=== PATIENT | female | born 1995 | race Caucasian/White ===

== ENCOUNTER 2017-11-19 16:17 | Emergency (ER) | payer MEDICAID, SELFPAY ==
[2017-11-19 16:18] VITALS: BP 117/62; PULSE 82; RESP 16; TEMP 36.8; O2SAT 96; BMI 21.7
[2017-11-19 16:56] LABS: Absolute Lymphocyte Count 1.25 X10^3/ul (0.83-4.51); Absolute Neutrophil Count 3.3 X10^3/uL (2.0-7.7); Basophil# 0.01 X10^3/uL; Basophil% 0.2 % (0-1); Eosinophil# 0.03 X10^3/uL; Eosinophils% 0.6 % (0-5); Hematocrit 36.9 % (37-47); Hemoglobin 12.8 g/dl (12.0-15.0); Lymphocyte # 1.25 X10^3/ul (4.0); Lymphocyte % 25.7 % (19-41); Mean Corp Hgb Conc 34.7 g/gl (32-36); Mean Corpuscular Hgb 33.9 pg (27.0-32.0); Mean Corpuscular Volume 97.6 fL (81-99); Mean Platelet Vol. 8.6 fl (6.2-12.0); Monocyte# 0.29 X10^3/uL; Neutrophil # 3.28 X10^3/uL (2.7-7.7); Neutrophil % 67.5 % (47-70); POSITIVE COUNT NO; POSITIVE DIFFERENTIAL NO; Platelet Count 306 K/mm3 (150-450); RBC Distribution Width SD 40.9 fl (35.1-43.9); Red Blood Count 3.78 M/mm3 (4.2-5.4); White Blood Count 4.9 K/mm3 (4.4-11.0)
[2017-11-19 16:57] LABS: POSITIVE MORPHOLOGY NO
[2017-11-19] MEDS: Mixture 30 ML Bottle 20 ML TOPICAL (17:49)
[2017-11-19] MEDS: Silver Nitrate (BKC) 8 EACH TOPICAL (17:49)
--- NOTE | 2017-11-19 17:59 | ED.VISSUMM ---
- ER Visit Summary Date of Service: 11/19/17 Chief Complaint: Epistaxis with hematemesis History of Present Illness: The patient is a 22 F who reports history of aplastic anemia diagnosed at the age of 19. She is presently approximately 10 weeks gestation. She is a AB 1 (spontaneous). She was sent to the ER by her warp hand because of epistaxis with hematemesis. Approximately 1 week ago she had a nosebleed. This morning she was awakened because of nosebleed. She had vomiting. There was some blood noted in the emesis. This most likely represented blood from her nosebleed. There is no history of trauma. She denies bruising easily. She denies hematuria, melena or maroon stool. She has no other complaints please read written note Physical Examination: Head is atraumatic normocephalic. Pupils are equal round reactive. Extraocular muscles are intact. TMs are pearly white with landmarks noted. Nares patent with no drainage. It is dried blood over Kiesselbach's plexus right and left posterior pharynx without erythema or exudate. Uvula is midline. There is no blood noted posteriorly. There is no dysphonia or dysphasia. Trachea is midline. There is no stridor with auscultation of the neck. His petechiae noted right and left side of the face. There is no conjunctival hemorrhage noted. Heart is regular without murmur, gallop or rub. S1 and S2 are normal. Lungs are clear to auscultation with good movement of air bilaterally. Abdomen is soft nontender. There are no bruises noted. Test Results: CBC was obtained and is normal. Emergency Department Course and Treatment: With history of aplastic anemia CBC was obtained initially since she has petechiae rule out thrombus cytopenia. Using Susanne solution the right and left naris was anesthetized. Cauterization of the right and left septum around the bleed was performed using silver nitrate sticks. Treatment Plan: Appropriate home-going instructions use of [place] nasal spray Disposition: Discharged home in stable condition Impression: 1. Bilateral acute anterior epistaxis 2. Hematemesis secondary to #1 3. First trimester 4. History of aplastic anemia This note was generated with 4meeeation software. It may contain incorrect words, spelling, and punctuation that were not noted in review of the chart prior to signing ED Disposition - Plan for ED Patient: Disposition: Home or Assisted Living Chief Complaint: Nosebleed Instructions: Nosebleed Referrals: Jessica Jay MD [Primary Care Provider] - Destinee Sevilla MD [STAFF PHYSICIAN] - Keep Evelina appointment
--- NOTE | 2017-11-19 18:05 | ED.DCSUM_ITS ---
- ER Visit Summary Date of Service: 11/19/17 Chief Complaint: Epistaxis with hematemesis History of Present Illness: The patient is a 22 F who reports history of aplastic anemia diagnosed at the age of 19. She is presently approximately 10 weeks gestation. She is a AB 1 (spontaneous). 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 Approximately 1 week ago she had a nosebleed. This morning she was awakened because of nosebleed. She had vomiting. There was some blood noted in the emesis. This most likely represented blood from her nosebleed. There is no history of trauma. She denies bruising easily. She denies hematuria, melena or maroon stool. She has no other complaints please read written note Physical Examination: Head is atraumatic normocephalic. Pupils are equal round reactive. Extraocular muscles are intact. TMs are pearly white with landmarks noted. Nares patent with no drainage. It is dried blood over Kiesselbach's plexus right and left posterior pharynx without erythema or exudate. Uvula is midline. There is no blood noted posteriorly. There is no dysphonia or dysphasia. Trachea is midline. There is no stridor with auscultation of the neck. His petechiae noted right and left side of the face. There is no conjunctival hemorrhage noted. Heart is regular without murmur, gallop or rub. S1 and S2 are normal. Lungs are clear to auscultation with good movement of air bilaterally. Abdomen is soft nontender. There are no bruises noted. Test Results: CBC was obtained and is normal. Emergency Department Course and Treatment: With history of aplastic anemia CBC was obtained initially since she has petechiae rule out thrombus cytopenia. Using Susanne solution the right and left naris was anesthetized. Cauterization of the right and left septum around the bleed was performed using silver nitrate sticks. Treatment Plan: Appropriate home-going instructions use of [place] nasal spray Disposition: Discharged home in stable condition Impression: 1. Bilateral acute anterior epistaxis 2. Hematemesis secondary to #1 3. First trimester 4. History of aplastic anemia This note was generated with Vungleation software. It may contain incorrect words, spelling, and punctuation that were not noted in review of the chart prior to signing ED Disposition - Plan for ED Patient: Disposition: Home or Assisted Living Chief Complaint: Nosebleed Instructions: Nosebleed Referrals: Jessica Jay MD [Primary Care Provider] - Destinee Sevilla MD [STAFF PHYSICIAN] - Keep Evelina appointment
== END 2017-11-19 18:11 | disposition home or self-care (01) ==
PROVIDERS: Emergency Provider Emergency Medicine; Family Provider Internal Medicine; PCP Internal Medicine
DX: O26.891 Other specified pregnancy related conditions, first trimester (principal); R04.0 Epistaxis; K92.0 Hematemesis; Z86.2 Personal history of diseases of the blood and blood-forming organs and certain disorders involving the immune mechanism; Z3A.10 10 weeks gestation of pregnancy
CPT/HCPCS: 30901; 85025; 99283; A4216

== ENCOUNTER → 2017-12-03 16:18 | Outpatient (CLI) | payer MEDICAID, SELFPAY | PROVIDERS: Family Provider Internal Medicine; PCP Internal Medicine; Visit Provider Otolaryngology | DX: J01.90 Acute sinusitis, unspecified (principal) | CPT/HCPCS: 87070; 87205 ==

== ENCOUNTER 2017-12-12 14:16 | Emergency (ER) | payer MEDICAID, SELFPAY ==
[2017-12-12 14:17] VITALS: BP 150/81; PULSE 86; RESP 16; TEMP 36.5; BMI 20.3
[2017-12-12] MEDS: Morphine 4 MG/ML Syringe IV (15:12)
[2017-12-12] MEDS: DiphenhydrAMINE 50 MG/ML Syringe 25 MG IV (15:12)
[2017-12-12] MEDS: 0.9% Normal Saline 1,000 ML 999 ML IV (15:12)
[2017-12-12] MEDS: Metoclopramide 10 MG/2 ML Vial IV (15:12)
--- NOTE | 2017-12-12 16:05 | ED.VISSUMM ---
- ER Visit Summary Date of Service: 12/12/17 Chief Complaint: Headache History of Present Illness: The patient is a [address] Destinee Sevilla and Dr. Jay. She is a at 15 weeks . She reports she has a headache that began 3 days ago. Is gradually gotten worse. It is a throbbing pain to her temples and posterior to her eyes. Senna 10 at worst a 10 currently. It is worsened by light. She has taken Tylenol without relief. She has been nausea and vomited twice. No blood or emesis. No recent trauma. No fever or chills. No vaginal bleeding. Physical Examination: Vitals: Stable. Afebrile. General: Well-nourished and well-developed. Head: Normocephalic atraumatic. Neck: Supple, no lymphadenopathy. No JVD. Nontender. Cardiovascular: Regular rate and rhythm. No murmurs. Respiratory: No respiratory distress. Clear to auscultation bilaterally. Abdominal: Soft, nontender, nondistended, normal bowel sounds. No guarding, rebound, or peritoneal signs. Gravid uterus. Back: Nontender. Extremities: Nontender, no edema. Skin: Normal color, no rash. Neurologic: Alert and oriented ?3. Cranial nerves II through XII are intact. Normal strength and sensation. Psych: Normal affect. Emergency Department Course and Treatment: The heart tones are 152. She was given morphine, Reglan, and Benadryl IV. She reports that she has had significant relief. Treatment Plan: Patient will be discharged with Reglan to use as needed for nausea and headache. Push fluids. Use Tylenol as well. Follow-up Dr. Sevilla and/or Dr. Jay in 1-2 days if not improving. Return to the emergency department for any worsening symptoms. Disposition: To home in improved and stable condition. Impression:. Cephalgia. 2. Second trimester . This note was generated with CorMatrix dictation software. It may contain incorrect words, spelling, and punctuation that were not noted in review of the chart prior to signing ED Disposition - Plan for ED Patient: Chief Complaint: Headache Instructions: ED Cephalgia Unspecified Prescriptions: Metoclopramide [Reglan] 10 mg PO 4X/DAY PRN #20 tablet PRN Reason: Headache Referrals: Jessica Jay MD [Primary Care Provider] - 1-2 Days if not improving Destinee Sevilla MD [STAFF PHYSICIAN] - 1-2 Days if not improving
[2017-12-12 16:13] VITALS: BP 102/30; PULSE 82; RESP 16; O2SAT 100
--- NOTE | 2017-12-12 16:15 | ED.RN ---
REVIEWED D/C INSTRUCTIONS, FOLLOW UP CARE, PRESCRIPTION, AND S/S THAT WOULD WARRANT A RETURN TO THE ED WITH PT. PT VERBALIZED AN UNDERSTANDING AND DENIES FURTHER QUESTIONS FOR THIS RN. PT SKIN P/W/D, RESP EVEN AND UNLABORED, PT A&O X 3, NO DISTRESS NOTED. PT AMBULATED OUT OF ED, GAIT STEADY.
== END 2017-12-12 16:16 | disposition home or self-care (01) ==
PROVIDERS: Emergency Provider Emergency Medicine; Family Provider Internal Medicine; PCP Internal Medicine
DX: O26.892 Other specified pregnancy related conditions, second trimester (principal); R51 Headache; O21.9 Vomiting of pregnancy, unspecified; O99.112 Other diseases of the blood and blood-forming organs and certain disorders involving the immune mechanism complicating pregnancy, second trimester; Z3A.15 15 weeks gestation of pregnancy
CPT/HCPCS: 96361; 96374; 96375; 99283; J7030

== ENCOUNTER 2018-02-02 08:50 | Emergency (ER) | payer MEDICAID, SELFPAY ==
[2018-02-02 08:51] VITALS: BP 115/65; PULSE 81; RESP 12; TEMP 36.2; BMI 21.1
--- NOTE | 2018-02-02 09:03 | ED.VISSUMM ---
- ER Visit Summary Date of Service: 02/02/18 Chief Complaint: Vomited blood History of Present Illness: The patient is a 22 F who states she vomited blood once this morning. She went to work and had a sweet tea and after that she vomited once. It was light red in color. She currently has no abdominal pain or nausea. She is 22 weeks gestation. She has had no abdominal pain or vaginal bleeding or vaginal discharge. She does have a history of aplastic anemia. Physical Examination: Vital signs reviewed. HEENT exam unremarkable. Heart is regular rate and rhythm without murmurs. Lungs are clear to auscultation. Abdomen is soft and nontender. Abdomen is gravid appropriate to dates. Extremities reveal no edema. Skin exam normal. Neurologic exam normal. Test Results: Hemoglobin 10.4 Emergency Department Course and Treatment: Patient has no symptoms at this time. heart tones are 134. Hemoglobin is 10.4. Patient will monitor symptoms and will follow up with her OB Treatment Plan: [] Disposition: Discharge Impression: Hematemesis-resolved, history of aplastic anemia This note was generated with IdealSeat dictation software. It may contain incorrect words, spelling, and punctuation that were not noted in review of the chart prior to signing ED Disposition - Plan for ED Patient: Chief Complaint: GI Bleed Referrals: Jessica Jay MD [Primary Care Provider] -
[2018-02-02 09:38] LABS: Absolute Lymphocyte Count 1.18 X10^3/ul (0.83-4.51); Absolute Neutrophil Count 2.6 X10^3/uL (2.0-7.7); Basophil# 0.01 X10^3/uL; Basophil% 0.3 % (0-1); Eosinophil# 0.02 X10^3/uL; Eosinophils% 0.5 % (0-5); Hematocrit 30.7 % (37-47); Hemoglobin 10.4 g/dl (12.0-15.0); Lymphocyte # 1.18 X10^3/ul (4.0); Lymphocyte % 29.8 % (19-41); Mean Corp Hgb Conc 33.9 g/gl (32-36); Mean Corpuscular Hgb 34.6 pg (27.0-32.0); Mean Platelet Vol. 8.1 fl (6.2-12.0); Monocyte# 0.17 X10^3/uL; Monocyte% 4.3 % (0-10); Neutrophil # 2.58 X10^3/uL (2.7-7.7); Neutrophil % 65.1 % (47-70); Platelet Count 197 K/mm3 (150-450); RBC Distribution Width CV 13.9 % (11.6-14.6); RBC Distribution Width SD 52.1 fl (35.1-43.9); Red Blood Count 3.01 M/mm3 (4.2-5.4)
[2018-02-02 09:39] LABS: POSITIVE COUNT NO; POSITIVE DIFFERENTIAL NO; POSITIVE MORPHOLOGY NO
--- NOTE | 2018-02-02 09:44 | ED.DEP ---
ED Disposition - Plan for ED Patient: Disposition: Home or Assisted Living Chief Complaint: GI Bleed Instructions: ED Bleed UGI Stable Referrals: Jessica Jay MD [Primary Care Provider] -
[2018-02-02 10:19] VITALS: BP 102/63; PULSE 67; RESP 16; O2SAT 100
== END 2018-02-02 10:25 | disposition home or self-care (01) ==
PROVIDERS: Emergency Provider Emergency Medicine; Family Provider Internal Medicine; PCP Internal Medicine
DX: O26.892 Other specified pregnancy related conditions, second trimester (principal); K92.0 Hematemesis; Z86.2 Personal history of diseases of the blood and blood-forming organs and certain disorders involving the immune mechanism; Z3A.22 22 weeks gestation of pregnancy
CPT/HCPCS: 85025; 99282

== ENCOUNTER 2018-02-06 18:43 | Emergency (ER) | payer MEDICAID, SELFPAY ==
[2018-02-06 18:44] VITALS: BP 94/53; PULSE 83; RESP 24; TEMP 36.6; O2SAT 98; BMI 21.7
--- NOTE | 2018-02-06 19:44 | ED.VISSUMM ---
- ER Visit Summary Date of Service: 02/06/18 Chief Complaint: Rash on face History of Present Illness: The patient is a 22 F who states that this morning she vomited. That occurred around 0800 hrs. Patient states that around 1300 hrs. Darlin informed that she has some red spots on her face. Is gotten worse. His has a history of aplastic anemia had her counts checked on Saturday and was told that they were fine. She has had some bleeding of her gums. Physical Examination: Febrile vital signs are stable. From the neck up the patient has some petechiae on the skin right greater than left. There is also some petechiae noted on the face and around the periorbital region. Test Results: CBC was obtained. Hemoglobin 10.3 was 10.4 on Saturday. Platelet count of 236 it was 197 on Saturday. Emergency Department Course and Treatment: Patient was given reassurance she will be discharged home return if worsening or concerns. Impression: 1. Facial and neck petechiae 2. Aplastic anemia This note was generated with [employer] dictation software. It may contain incorrect words, spelling, and punctuation that were not noted in review of the chart prior to signing ED Disposition - Plan for ED Patient: Disposition: Home or Assisted Living Chief Complaint: Rash Instructions: ED Petechiae Ch Referrals: Jessica Jay MD [Primary Care Provider] - As Needed
[2018-02-06 20:00] LABS: Absolute Lymphocyte Count 2.07 X10^3/ul (0.83-4.51); Absolute Neutrophil Count 3.3 X10^3/uL (2.0-7.7); Basophil# 0.01 X10^3/uL; Basophil% 0.2 % (0-1); Eosinophil# 0.04 X10^3/uL; Eosinophils% 0.7 % (0-5); Hematocrit 29.9 % (37-47); Hemoglobin 10.3 g/dl (12.0-15.0); Lymphocyte # 2.07 X10^3/ul (4.0); Lymphocyte % 35.9 % (19-41); Mean Corp Hgb Conc 34.4 g/gl (32-36); Mean Corpuscular Hgb 34.7 pg (27.0-32.0); Mean Corpuscular Volume 100.7 fL (81-99); Mean Platelet Vol. 8.3 fl (6.2-12.0); Monocyte# 0.32 X10^3/uL; Monocyte% 5.6 % (0-10); Neutrophil # 3.32 X10^3/uL (2.7-7.7); Neutrophil % 57.6 % (47-70); Platelet Count 236 K/mm3 (150-450); RBC Distribution Width CV 13.4 % (11.6-14.6); RBC Distribution Width SD 49.2 fl (35.1-43.9); Red Blood Count 2.97 M/mm3 (4.2-5.4); White Blood Count 5.8 K/mm3 (4.4-11.0)
[2018-02-06 20:01] LABS: POSITIVE COUNT NO; POSITIVE DIFFERENTIAL NO; POSITIVE MORPHOLOGY NO
== END 2018-02-06 20:12 | disposition home or self-care (01) ==
PROVIDERS: Emergency Provider Emergency Medicine; Family Provider Internal Medicine; PCP Internal Medicine
DX: R23.3 Spontaneous ecchymoses (principal); D61.9 Aplastic anemia, unspecified; R11.10 Vomiting, unspecified
CPT/HCPCS: 36415; 85025; 99282

== ENCOUNTER 2018-03-05 00:26 | Emergency (ER) | payer MEDICAID, SELFPAY ==
[2018-03-05 00:27] VITALS: BP 109/66; PULSE 86; RESP 17; TEMP 36.6; O2SAT 96; BMI 21.9
--- NOTE | 2018-03-05 00:42 | ED.VISSUMM ---
- ER Visit Summary Date of Service: 03/05/18 Chief Complaint: [Rash] History of Present Illness: The patient is a 22 F [started with a rash 2 days ago. Patient states it is pruritic. Patient recently used a new soap and is not sure if that was the cause of it. Patient also thinks it is possible she may have been exposed to poison prem or poison oak. Patient denies any new medications. Patient is 26 weeks . She has not had any recent illness. She denies any lip or tongue swelling or difficulty breathing.] Physical Examination: [HEENT-PERRLA, EOMI. Cranial nerves II through XII grossly intact. TMs clear. Mucous membranes moist. No adenopathy. Cardiovascular-regular rate and rhythm without murmur or ectopy Lungs-clear to auscultation, chest wall stable without crepitus or subcu emphysema Abdomen-normoactive bowel sounds, soft, nontender, no rebound or rigidity, no peritoneal signs. Skin exam-patient has urticaria involving the face, upper extremities, lower extremities and back. She has a red raised rash that is pruritic and consistent with urticaria Extremities-intact ?4, normal range of motion, normal pulses, atraumatic] Test Results: [None indicated Emergency Department Course and Treatment: [Patient given Solu-Medrol 125 mg IV and Benadryl 25 mill grams IV] Treatment Plan: [Patient will be treated with prednisone and advised use Benadryl as needed for itching] Disposition: [Discharged home in stable condition] Impression: [Urticaria-etiology uncertain] This note was generated with bluebottlebiz dictation software. It may contain incorrect words, spelling, and punctuation that were not noted in review of the chart prior to signing ED Disposition - Plan for ED Patient: Chief Complaint: Allergic Reaction Referrals: Jessica Jay MD [Primary Care Provider] -
--- NOTE | 2018-03-05 00:43 | ED.DEP ---
ED Disposition - Plan for ED Patient: Chief Complaint: Allergic Reaction Instructions: ED Urticaria Prescriptions: Prednisone [Deltasone] 20 mg PO BID #10 tab Referrals: Jessica Jay MD [Primary Care Provider] - 5-7 Days
[2018-03-05] MEDS: DiphenhydrAMINE 50 MG/ML Syringe 25 MG IV (00:49)
[2018-03-05] MEDS: MethylPREDNISolone 125 MG/2 ML Vial IV (00:49)
[2018-03-05 00:59] VITALS: BP 114/70; PULSE 69; RESP 18; O2SAT 98
== END 2018-03-05 00:59 | disposition home or self-care (01) ==
LOC: ED 00:54
PROVIDERS: Emergency Provider Emergency Medicine; Family Provider Internal Medicine; PCP Internal Medicine
DX: O26.892 Other specified pregnancy related conditions, second trimester (principal); L50.9 Urticaria, unspecified; Z86.2 Personal history of diseases of the blood and blood-forming organs and certain disorders involving the immune mechanism; Z3A.26 26 weeks gestation of pregnancy
CPT/HCPCS: 96374; 96375; 99284

== ENCOUNTER 2018-03-21 15:28 | Emergency (ER) | payer MEDICAID, SELFPAY ==
[2018-03-21 15:29] VITALS: BP 116/71; PULSE 86; RESP 18; TEMP 37; O2SAT 98; BMI 21.7
--- NOTE | 2018-03-21 15:49 | ED.VISSUMM ---
- ER Visit Summary Date of Service: 03/21/18 Chief Complaint: Swelling to chin History of Present Illness: The patient is a [address] Sevilla and Dr. Jay. She is a at 28 weeks of . She reports she had normal movement and no vaginal bleeding. She reports that she feels a swollen area under her chin and this began yesterday. States that it feels bruised. She has pain 6 out of 10 at worst and 5 out of 10 currently. Is worsened by swallowing. She is not taking anything for pain. Denies any dental pain or sore throat. No fever or chills. She does report that it is making her feel short of breath. Physical Examination: Vitals: Stable. Afebrile. General: Well-nourished and well-developed. Head: Normocephalic atraumatic. Neck: Supple, solitary approximately 1 cm swollen lymph node in the right submental region. There is no erythema. No JVD. Nontender. No pain with palpation of her teeth. No pharyngeal erythema or tonsillar exudate. Cardiovascular: Regular rate and rhythm. No murmurs. Respiratory: No respiratory distress. Clear to auscultation bilaterally. Abdominal: Soft, nontender, nondistended, normal bowel sounds. No guarding, rebound, or peritoneal signs. Gravid uterus. Back: Nontender. Extremities: Nontender, no edema. Skin: Normal color, no rash. Neurologic: Alert and oriented ?3. Cranial nerves II through XII are intact. Normal strength and sensation. Psych: Normal affect. Emergency Department Course and Treatment: Patient was treated with Tylenol and amoxicillin. Treatment Plan: Had a prolonged discussion the patient at this time I do not have an explanation for this swollen lymph node. She will be discharged on amoxicillin and instructed to follow-up with Dr. Manuel in 1 week if not improving. I did discuss the possibility that this could be something more serious like lymphoma if it is not improving. Follow-up with Dr. Sevilla as previously directed. Disposition: To home in improved and stable condition. Impression: 1. Submental lymphadenopathy. 2. Third trimester . This note was generated with OneMedNetation software. It may contain incorrect words, spelling, and punctuation that were not noted in review of the chart prior to signing ED Disposition - Plan for ED Patient: Chief Complaint: Other, Pain/Inj Instructions: ED Cervical Adenitis Abx Tx Prescriptions: Amoxicillin 500 mg PO TID #30 tablet Referrals: Tay Manuel MD [STAFF PHYSICIAN] - 1 Week if not improving
[2018-03-21] MEDS: AMOXICILLIN 500 MG CAPSULE PO (16:03)
[2018-03-21] MEDS: Acetaminophen 325 MG Tablet 1000 MG PO (16:04)
[2018-03-21 16:08] VITALS: PULSE 81; RESP 14; O2SAT 98
== END 2018-03-21 16:09 | disposition home or self-care (01) ==
LOC: ED 15:50
PROVIDERS: Emergency Provider Emergency Medicine; Family Provider Internal Medicine; PCP Internal Medicine
DX: O26.893 Other specified pregnancy related conditions, third trimester (principal); R59.0 Localized enlarged lymph nodes; Z3A.28 28 weeks gestation of pregnancy
CPT/HCPCS: 99283

== ENCOUNTER 2018-03-28 22:11 | Emergency (ER) | payer MEDICAID, SELFPAY ==
[2018-03-28 22:11] VITALS: BP 131/81; PULSE 99; RESP 14; TEMP 37.1; O2SAT 98; BMI 22.1
--- NOTE | 2018-03-28 22:30 | ED.VISSUMM ---
- ER Visit Summary Date of Service: 03/28/18 Chief Complaint: Headache History of Present Illness: The patient is a 22 F at 30 weeks gestation presents with a gradual onset of headache and photophobia. No vision changes. She felt lightheaded while in a hot shower, however this has resolved. No fever or chills. Patient has no abdominal pain, vaginal bleeding. She has no edema. She has not had problems this . Physical Examination: Not appear in acute distress. Moist mucous membranes, no obvious facial deformity No C-spine tenderness supple neck. Regular rate and rhythm without any obvious murmurs Clear lungs bilaterally speaking in full sentences without any obvious respiratory distress Abdomen soft and nontender no guarding or rebound Moves all extremities without any difficulty or pain. No edema Skin does not show any obvious rashes or lesions, no trauma. Alert oriented ?3 with no gross focal deficit. Normal gait, cerebellar. Emergency Department Course and Treatment: Patient received IV fluids, antiemetics. Workup is unremarkable her initial systolic was slightly high but her PIH labs were negative. She is to follow-up with her manager management, I told her to check her blood pressure at the grocery store pharmacy every day, if her symptoms worsen or she gets headache or swelling she needs to return right away. Otherwise she will be discharged in stable condition, she had a gradual onset of headache with no neurological symptoms which improved, no reason for intracranial imaging. Disposition: Discharge stable condition Impression: Headache This note was generated with [employer] dictation software. It may contain incorrect words, spelling, and punctuation that were not noted in review of the chart prior to signing ED Disposition - Plan for ED Patient: Disposition: Home or Assisted Living Chief Complaint: Headache Instructions: ED Cephalgia Unspecified Referrals: Destinee Sevilla MD [STAFF PHYSICIAN] - 3-5 Days
[2018-03-28] MEDS: 0.9% Normal Saline 1,000 ML 1000 ML IV (22:39)
[2018-03-28] MEDS: DiphenhydrAMINE 50 MG/ML Syringe 25 MG IV (22:39)
[2018-03-28 22:47] LABS: Absolute Lymphocyte Count 2.29 X10^3/ul (0.83-4.51); Absolute Neutrophil Count 3.8 X10^3/uL (2.0-7.7); Basophil# 0.01 X10^3/uL; Basophil% 0.1 % (0-1); Eosinophil# 0.08 X10^3/uL; Eosinophils% 1.2 % (0-5); Hematocrit 31.9 % (37-47); Lymphocyte # 2.29 X10^3/ul (4.0); Lymphocyte % 34.3 % (19-41); Mean Corp Hgb Conc 34.5 g/gl (32-36); Mean Corpuscular Hgb 34.5 pg (27.0-32.0); Mean Platelet Vol. 8.6 fl (6.2-12.0); Monocyte# 0.46 X10^3/uL; Monocyte% 6.9 % (0-10); Neutrophil # 3.84 X10^3/uL (2.7-7.7); Neutrophil % 57.5 % (47-70); Platelet Count 196 K/mm3 (150-450); RBC Distribution Width CV 12.6 % (11.6-14.6); RBC Distribution Width SD 45.9 fl (35.1-43.9); Red Blood Count 3.19 M/mm3 (4.2-5.4); White Blood Count 6.7 K/mm3 (4.4-11.0)
[2018-03-28 22:48] LABS: POSITIVE COUNT NO; POSITIVE DIFFERENTIAL NO; POSITIVE MORPHOLOGY NO
[2018-03-28 23:08] LABS: BUN 5 mg/dL (7-18); Creatinine, Serum 0.64 mg/dL (0.55-1.02); Estimated Creatinine Clearance 115.02 ml/min; Glucose 87 mg/dL (74-106)
[2018-03-28 23:09] LABS: AST(SGOT) 19 U/L (15-37); Alanine Aminotransfer ALT/SGPT 15 U/L (13-56); Albumin, Serum 2.7 g/dL (3.2-5.0); Alkaline Phosphatase 89 U/L (45-117); Anion Gap 10 (5-15); BUN/Creat Ratio 7.8 RATIO (10-20); Bilirubin, Direct 0.06 mg/dL (0.00-0.30); Calcium,Total 8.2 mg/dL (8.5-10.1); Chloride 106 mmol/L (98-107); EST Glomerular Filtration Rate 124 mL/min (>60); Est Glom Filt Rate - Afr Amer 150 mL/min (>60); Globulin 4.4 g/dL (2.2-4.2); Potassium 3.3 mmol/L (3.5-5.1); Protein, Total 7.1 g/dL (6.4-8.2); Sodium Level 140 mmol/L (136-145); Uric Acid 3.5 mg/dL (2.6-6.0)
== END 2018-03-28 23:52 | disposition home or self-care (01) ==
PROVIDERS: Emergency Provider Emergency Medicine; Family Provider Internal Medicine; PCP Internal Medicine
DX: O26.893 Other specified pregnancy related conditions, third trimester (principal); R51 Headache; R42 Dizziness and giddiness; R11.0 Nausea; Z86.2 Personal history of diseases of the blood and blood-forming organs and certain disorders involving the immune mechanism; Z3A.30 30 weeks gestation of pregnancy
CPT/HCPCS: 80048; 80076; 84550; 85025; 96361; 96374; 99283; J7030; A4216

== ENCOUNTER 2018-04-19 09:40 | Outpatient (CLI) | payer MEDICAID, SELFPAY ==
[2018-04-19 10:24] VITALS: BMI 22.4
[2018-04-19 10:26] LABS: Mucous, Urine 0 SEEN /hpf (<or=2+); Red Blood Cells-Urine 0 SEEN /hpf (0-5)
[2018-04-19 10:29] LABS: Color, Urine Yellow (Yellow); Glucose, Dipstick Normal (Normal); Ketone-Dipstick 15 mg/dl (Negative); Leukocyte Esterase-Dipstick 100 /ul (Negative); Nitrite-Dipstick Negative (Negative); Occult Blood-Urine Negative /ul (Negative); Protein-Dipstick Negative (Negative); Specific Gravity, Urine 1.015 (1.002-1.030); Urine Bilirubin Dipstick Negative (Negative); Urine Clarity Clear (Clear); Urine Urobilinogen Normal (Normal)
[2018-04-19 10:44] LABS: Bacteria 1+ /hpf (None Seen); Squamous Epithelial Cells - UA 0-5 SEEN /hpf (5-10); White Blood Cells 0-5 SEEN /hpf (0-5)
[2018-04-19] MEDS: Lactated Ringers 1,000 ML 999 ML IV (11:15)
--- NOTE | 2018-04-20 00:48 | OB.TRI.NOTE ---
- Problem List (1) Status: Acute History of Present Illness Date of Service: 04/19/18 Was patient seen by the physician?: No Reason For Visit: R/O LABOR Date of Service: 04/19/18 Final JARON: 06/09/18 Gestational age: 32 Weeks and 6 Days History of Present Illness: Presented to L&D with complaint of contractions and back pain. Denied any leakage of fluid or vaginal bleeding. [place] in last 24 hours. Allergies No Known Allergies Allergy (Verified 04/19/18 10:24) NST - FHR Rate Baby A Baseline: 140 Variability:: Moderate Accelerations:: 15 x 15 Decelerations:: None NST Reactive:: Yes FHR Category:: Category I Uterine Activity:: every 2-3 minutes, lasting 30-50 seconds. Contractions decreased to every 5 minutes Impression/Plan A: False Labor Reactive NST P: 1) UA done, negative 2) 1 liter LR bolus 3) Contractions decreased, patient no longer uncomfortable or feeling contractions, no cervical change per nursing staff. Ok to D/C home. PTL precautions reviewed by nursing.
== END 2018-04-19 12:45 | disposition home or self-care (01) ==
LOC: WPOUT 10:11 → WP 10:12
PROVIDERS: Family Provider Internal Medicine; PCP Internal Medicine; Visit Provider Advanced Practice Midwife
DX: O47.03 False labor before 37 completed weeks of gestation, third trimester (principal); Z3A.32 32 weeks gestation of pregnancy
CPT/HCPCS: 96360; 59025; 59050; 81001; 99218; J7120; G0378

== ENCOUNTER 2018-05-11 02:25 | Outpatient (CLI) | payer MEDICAID, SELFPAY ==
[2018-05-11 03:06] VITALS: BMI 23.4
[2018-05-11 03:24] LABS: Mucous, Urine 0 SEEN /hpf (<or=2+); Red Blood Cells-Urine 0 SEEN /hpf (0-5)
[2018-05-11 03:34] LABS: Color, Urine Yellow (Yellow); Glucose, Dipstick Normal (Normal); Ketone-Dipstick Negative (Negative); Leukocyte Esterase-Dipstick 25 /ul (Negative); Nitrite-Dipstick Negative (Negative); Occult Blood-Urine Negative /ul (Negative); Protein-Dipstick Negative (Negative); Urine Bilirubin Dipstick Negative (Negative); Urine Clarity Sl. Cloudy (Clear); Urine Urobilinogen Normal (Normal)
[2018-05-11 03:40] LABS: Amorphous Sediment 1+; Bacteria RARE /hpf (None Seen); Squamous Epithelial Cells - UA 0-5 SEEN /hpf (5-10)
[2018-05-11 03:41] LABS: White Blood Cells 0-5 SEEN /hpf (0-5)
[2018-05-11 06:17] LABS: Group B Strep DNA By PCR Negative (Negative); Internal Control PASS; Probe Check PASS; Specimen Processing Control PASS
--- NOTE | 2018-05-11 20:23 | OB.TRI.NOTE ---
History of Present Illness Date of Service: 05/11/18 Was patient seen by the physician?: No Reason For Visit: R/O LABOR Date of Service: 05/11/18 Final JARON: 06/09/18 Gestational age: 35 Weeks and 6 Days Allergies No Known Allergies Allergy (Verified 05/11/18 03:10) NST - FHR Rate Baby A Baseline: 130 Variability:: Moderate Accelerations:: 15 x 15 Decelerations:: None NST Reactive:: Yes FHR Category:: Category I Uterine Activity:: irregular Impression/Plan 22yo @ 35.6 wks- FALSE LABOR NST reactive category 1- no cervical change made. dc home
== END 2018-05-11 04:30 | disposition home or self-care (01) ==
LOC: WPOUT 02:57 → WP 02:57
PROVIDERS: Family Provider Internal Medicine; PCP Internal Medicine; Visit Provider Obstetrics & Gynecology
DX: O47.03 False labor before 37 completed weeks of gestation, third trimester (principal); Z3A.35 35 weeks gestation of pregnancy
CPT/HCPCS: 59025; 59050; 81001; 87081; 87653; 99218; G0378

== ENCOUNTER 2018-05-17 01:40 | Outpatient (CLI) | payer MEDICAID, SELFPAY ==
[2018-05-17 02:20] VITALS: BMI 23.4
[2018-05-17] MEDS: Metoclopramide 10 MG Tablet 5 MG PO (02:47)
[2018-05-17] MEDS: Acetaminophen/Butalbital/Caffe 1 Tablet PO (02:47)
[2018-05-17] MEDS: Betamethasone/Betamethasone 30 MG/5 ML Vial 12 MG IM (03:00)
[2018-05-17] MEDS: Lactated Ringers 1,000 ML 999 ML IV (03:58)
--- NOTE | 2018-05-17 05:42 | OB.TRI.HP_ITS ---
- Problem List (1) Headache in Status: Acute (2) Cramping affecting , antepartum Status: Acute History of Present Illness Date of Service: 05/17/18 Was patient seen by the physician?: Yes Reason For Visit: R/O LABOR Date of Service: 05/17/18 Final JARON: 06/09/18 Gestational age: 36 Weeks and 5 Days History of Present Illness: Patient presents to triage due to SPIVEY. She took Tylenol and Benadryl last night without relief of her SPIVEY. It is a frontal SPIVEY, associated with worsening with light. She also has associated nausea and 1 episode of emesis. She was able to drink water after the episode of emesis. Denies hx of chronic SPIVEY's or every having migraine before in the past. No vision changes. No RUQ pain. She reports she has been feeling pelvic pressure and menstrual cramping. No vb, lof. Good FM. Allergies No Known Allergies Allergy (Verified 05/11/18 03:10) Review of Systems Constitutional: Denies: Chills, Fever, Malaise Eyes: Denies: Blurred vision, Double vision HEENT: Reports: Head Aches Gastrointestinal: Reports: Nausea, Vomiting. Denies: Abdominal Pain, Constipation, Diarrhea, Dyspepsia Genitourinary: Denies: Dysuria Gynecological: Denies: Vaginal bleeding, Vaginal discharge Neurological: Reports: Headaches. Denies: Blurred vision, Double vision Psychiatric: Reports: Anxiety Physical Exam Vitals: BP normotensive General: Alert, Oriented x3, No apparent distress HEENT: Atraumatic Lungs: - - No increased resp effort Abdomen: Soft, Non Tender, Gravid Extremities:: No edema Neurological: Neuro grossly intact Presentation: Cephalic Cervix Dilation (cm): 3.5 - per RN exam NST - FHR Rate Baby A NST Reactive:: Yes FHR Category:: Category I Uterine Activity:: ctx's q 2-4 min Impression/Plan 22 y/o at 36 wks gestation presenting to triage for SPIVEY. - SPIVEY: BP's normal. Resolved with Fioricet and Reglan. Likely a migraine given description by pt. No other pre-e symptoms - Cramping and pressure: [place] showing ctx's q 2-4 min. Pt not uncomfortable or having pain with the ctx's. She reports menstrual-like cramping only. Pt comfortable appearing on exam as well. Cvx 3 > 3.5 > 3.5 cm per RN. BMZ x 1 given, will get second dose in 24 hrs. IVF bolus given. Pt states she lives 5-10 min away from the hospital. Gave her strict PTL return precautions. Otherwise she is to return to triage for her 2nd BMZ injection. GBS negative
== END 2018-05-17 05:50 | disposition home or self-care (01) ==
LOC: WPOUT 01:53 → WP 01:54
PROVIDERS: Family Provider Internal Medicine; PCP Internal Medicine; Visit Provider Obstetrics & Gynecology
DX: O26.893 Other specified pregnancy related conditions, third trimester (principal); R51 Headache; O21.2 Late vomiting of pregnancy; Z3A.36 36 weeks gestation of pregnancy
CPT/HCPCS: 96360; 59025; 59050; 96372; 99218; J7120; G0378

== ENCOUNTER 2018-05-17 16:15 | Outpatient (CLI) | payer MEDICAID, SELFPAY ==
[2018-05-17 18:06] VITALS: BMI 23.6
--- NOTE | 2018-05-17 19:12 | OB.TRI.NOTE ---
- Problem List (1) contractions Status: Acute History of Present Illness Date of Service: 05/17/18 Was patient seen by the physician?: Yes Reason For Visit: RULE OUT LABOR Date of Service: 05/17/18 Gestational age: 36 wks History of Present Illness: Patient reports her ctx's continued after leaving triage this morning, and she felt they were more painful. Still feeling them regularly. No vb, lof. Good FM. Allergies No Known Allergies Allergy (Verified 05/17/18 18:08) - Pertinent Past Medical History Medical History: Past Medical History (Last Updated 05/17/18 @ 05:41 by Melissa Soriano DO) Anxiety Aplastic anemia History of miscarriage Vitamin B12 deficiency Review of Systems Gynecological: Reports: - - +Ctx's. No vb, lof. Good FM. Physical Exam General: Alert, Oriented x3 HEENT: Atraumatic Lungs: - - No increased resp effort Abdomen: Soft, Non Tender, Gravid Neurological: Neuro grossly intact Presentation: Cephalic Cervix Dilation (cm): 3.5 - on 2 exams per RN NST - FHR Rate Baby A FHR Category:: Category I Uterine Activity:: Ctx q 2-5 min Impression/Plan 22 y/o at 36 wks gestation presenting with contractions. - Cvx 3.5 cm, and unchanged on recheck - Pt appears comfortable - Will give 1 dose of Procardia for symptomatic relief, and send an rx if pt desires - Ok for d/c home as she does not appear to be in PTL at this time - To return in the AM for 2nd dose of BMZ - Strict return precautions given
[2018-05-17] MEDS: NIFEdipine 10 MG Capsule PO (19:28)
[2018-05-17 19:30] VITALS: BP 126/66; PULSE 81; RESP 16; TEMP 36.7
== END 2018-05-17 20:35 | disposition home or self-care (01) ==
LOC: WPOUT 16:42 → WP 16:43
PROVIDERS: Family Provider Internal Medicine; PCP Internal Medicine; Visit Provider Obstetrics & Gynecology
DX: O26.893 Other specified pregnancy related conditions, third trimester (principal); R51 Headache; O21.2 Late vomiting of pregnancy; O99.343 Other mental disorders complicating pregnancy, third trimester; F41.9 Anxiety disorder, unspecified; Z3A.36 36 weeks gestation of pregnancy
CPT/HCPCS: 96360; 59025; 59050; 96372; 99218; J7120; G0378

== ENCOUNTER 2018-05-18 06:50 | Outpatient (CLI) | payer MEDICAID, SELFPAY ==
[2018-05-18 06:56] VITALS: BMI 23.6
[2018-05-18] MEDS: Betamethasone/Betamethasone 30 MG/5 ML Vial 12 MG IM (07:25)
[2018-05-18 07:36] VITALS: BP 115/58; PULSE 76; RESP 20; TEMP 36.1
--- NOTE | 2018-05-24 20:18 | OB.TRI.PN ---
Progress Notes Progress Note: Patient presented for 2nd dose of BMZ.
== END 2018-05-18 07:35 | disposition home or self-care (01) ==
LOC: WPOUT 06:53 → WP 06:53
PROVIDERS: Family Provider Internal Medicine; PCP Internal Medicine; Visit Provider Obstetrics & Gynecology
DX: O26.893 Other specified pregnancy related conditions, third trimester (principal); R51 Headache; O21.2 Late vomiting of pregnancy; Z3A.36 36 weeks gestation of pregnancy
CPT/HCPCS: 96372; 99218; G0378; J0702

== ENCOUNTER 2018-05-19 20:55 | Outpatient (CLI) | payer MEDICAID, SELFPAY ==
[2018-05-19 21:27] VITALS: BMI 24.6
[2018-05-19 21:50] LABS: Bacteria 0 SEEN /hpf (None Seen); Mucous, Urine 0 SEEN /hpf (<or=2+); Red Blood Cells-Urine 0 SEEN /hpf (0-5)
[2018-05-19 22:01] LABS: Color, Urine Straw (Yellow); Glucose, Dipstick Normal (Normal); Ketone-Dipstick Negative (Negative); Leukocyte Esterase-Dipstick Negative /ul (Negative); Nitrite-Dipstick Negative (Negative); Occult Blood-Urine Negative /ul (Negative); Protein-Dipstick Negative (Negative); Specific Gravity, Urine 1.005 (1.002-1.030); Urine Bilirubin Dipstick Negative (Negative); Urine Clarity Clear (Clear); Urine Urobilinogen Normal (Normal); Urine pH 6.5 (5.0 - 8.0)
[2018-05-19 22:07] LABS: Squamous Epithelial Cells - UA 0-5 SEEN /hpf (5-10); White Blood Cells 0-5 SEEN /hpf (0-5)
[2018-05-19] MEDS: Acetaminophen 500 MG Tablet 1000 MG PO (22:46)
--- NOTE | 2018-05-20 01:09 | OB.TRI.HP_ITS ---
- Problem List (1) False labor after 37 weeks of gestation without delivery Status: Acute History of Present Illness Date of Service: 05/19/18 Was patient seen by the physician?: Yes Reason For Visit: R/O LABOR Date of Service: 05/19/18 Final JARON: 06/09/18 Final JARON Source: US <20 weeks Gestational age: 37 Weeks and 1 Days History of Present Illness: Patient reports frequent contractions that are 2 minutes apart and lasting 30 seconds in length. Patient concerned that she may be in labor. Patient denies LOF, VB or DFM. Allergies No Known Allergies Allergy (Verified 05/18/18 06:57) - Pertinent Past Medical History Medical History: Past Medical History (Last Updated 05/17/18 @ 05:41 by Melissa Soriano DO) Anxiety Aplastic anemia History of miscarriage Vitamin B12 deficiency Review of Systems Constitutional: Denies: Chills, Fever, Weight Change HEENT: Denies: Head Aches, Sinus Congestion, Sinus Drainage Cardiovascular: Denies: Chest Pain, Palpitations Respiratory: Denies: Cough, Shortness of breath at rest, Sputum production Gastrointestinal: Denies: Abdominal Pain, Nausea, Vomiting Genitourinary: Denies: Dysuria Gynecological: Denies: Vaginal bleeding, Vaginal discharge, Vaginal itching Musculoskeletal: Denies: Joint Pain, Joint Tenderness Skin: Denies: Rash, Wounds Neurological: Denies: Numbness, Tingling, Focal weakness Psychiatric: Denies: Anxiety, Depression, Homicidal Ideations, Suicidal Ideations Hematologic/ Lymphatic: Denies: Easy Bruising, Easy Bleeding Physical Exam Vitals: See nursing note for vital signs - normotensive and afebrile General: Alert, Oriented x3, No apparent distress HEENT: Atraumatic, Normocephalic. Negative for: Thyromegaly, Lymphadenopathy Cardiovascular: Regular rate, Regular Rhythm Lungs: Normal air movement Abdomen: Gravid, Appropriate for Gestational Age Neurological: Deep Tendon Reflexes 2+/4 and Symmetrical [employer]: Normal external genitalia. Negative for: Vulvar lesions Estimated gestational size: Appropriate for gestational size Presentation: Cephalic Cervix Dilation (cm): 3.5 - Cervix unchanged from last exam NST - FHR Rate Baby A Baseline: 120 Variability:: Moderate Accelerations:: 15 x 15 Decelerations:: None NST Reactive:: Appropriate for gestational age FHR Category:: Category I Uterine Activity:: Uterine irritability noted, contractions not palpable Impression/Plan 22 y/o , IUP @ 37+ weeks, False Labor, Category I FHT P: 1) Patient discharged to home - not currently in labor 2) Labor precautions reviewed 3) Patient to f/u in [facility] as scheduled. Ludmila JIMENEZ
== END 2018-05-19 22:55 | disposition home or self-care (01) ==
LOC: WPOUT 21:24 → WP 21:26
PROVIDERS: Advanced Practice Midwife; Family Provider Internal Medicine; PCP Internal Medicine; Visit Provider Obstetrics & Gynecology
DX: O47.1 False labor at or after 37 completed weeks of gestation (principal); O99.343 Other mental disorders complicating pregnancy, third trimester; F41.9 Anxiety disorder, unspecified; E53.8 Deficiency of other specified B group vitamins; Z3A.37 37 weeks gestation of pregnancy
CPT/HCPCS: 59025; 59050; 81001; 99218; G0378

== ENCOUNTER 2018-05-28 04:43 | Inpatient (IN) | payer MEDICAID, SELFPAY ==
[2018-05-28 05:20] VITALS: BMI 24.1
--- NOTE | 2018-05-28 05:21 | NURSING ---
Patient states is taking a pill and cream for yeast infection, is unable to tell RN name of med or dose.
[2018-05-28] MEDS: Lactated Ringers 1,000 ML 50 ML IV ×3 (05:30→08:58)
[2018-05-28 05:39] LABS: Hematocrit 32.7 % (37-47); Hemoglobin 11.2 g/dl (12.0-15.0); Mean Corp Hgb Conc 34.3 g/gl (32-36); Mean Corpuscular Volume 102.2 fL (81-99); Mean Platelet Vol. 9.4 fl (6.2-12.0); Platelet Count 246 K/mm3 (150-450); RBC Distribution Width CV 13.7 % (11.6-14.6); RBC Distribution Width SD 49.4 fl (35.1-43.9)
[2018-05-28 05:40] LABS: Scan Indicated on CBC? Y/N NO
[2018-05-28 06:56] LABS: Amphetamine Urine VISTA NEGATIVE (<1000 ng/mL); Barbiturate Urine VISTA NEGATIVE (< 200 ng/mL); Benzodiazepine Urine VISTA NEGATIVE (< 200 ng/mL); Cocaine Urine VISTA NEGATIVE (< 300 ng/mL); Ecstacy Urine VISTA NEGATIVE (< 500 ng/mL); Methadone Urine VISTA NEGATIVE (< 300 ng/mL); PCP Urine VISTA NEGATIVE (< 25 ng/mL); THC Urine VISTA NEGATIVE (< 50 ng/mL); Vista UDS pH Range 6
[2018-05-28] MEDS: fentaNYL-bupivacaine (epidural) 100 ML BAG EPIDURAL ×2 (06:56→12:08)
--- NOTE | 2018-05-28 08:33 | PCM.HP.OB ---
- Problem List (1) History of aplastic anemia Status: Acute History Date of Admission: 05/28/18 Final JARON: 06/09/18 Final JARON Source: US <20 weeks Gestational age: 38 Weeks and 2 Days History of this : This is a 22 year-old, G [2], P [0010], at 38 weeks gestational age by LMP, confirmed by U/S. Presented to L&D with contractions that began at 0300 this am. Upon arrival to L&D she was 5cm dilated. Denies any headaches, visual changes, chest pain, SOB, vaginal bleeding or leakage of fluid. Was seen in office yesterday for vaginal discharge, membranes intact, positive for BV and yeast. Family at bedside. History of aplastic anemia treated by . Patient was given option by for cord blood banking but patient declines. History of marijuana use in early PUPPS History of anxiety History of SAB B12 Deficiency Medical History: Medical History (Last Updated 05/17/18 @ 05:41 by Melissa Soriano DO) Anxiety F41.9 Aplastic anemia D61.9 History of miscarriage Z87.59 Vitamin B12 deficiency E53.8 Allergies No Known Allergies Allergy (Verified 05/28/18 05:18) Home Medications: Home Medications Pnv No.122/Iron/Folic Acid [ Multi Tablet] 1 each PO DAILY 04/05/17 Cyanocobalamin (Vitamin B-12) [Vitamin B-12] 1,000 units PO DAILY 05/28/18 Smoking Status: Former smoker Alcohol: None Substance Use Type: Marijuana Number of Fetus(es): 1 Heart Tracin, moderate variability, accels, occassional variable decel, Category 2 TOCO Analysis: Every 1-3 minutes, strong History Past Pregnancies: Past Pregnancies Delivery Date Name GA/Weeks Outcome Route Weight Gender Labor Length Anesthesia Delivery Location Provider FOB Labs: GBS negative RPR negative Rubella Immune HBsAG negative HIV negative O positive, antibody screen negative Urine tox screen negative on 10/31/17 Expected Delivery Method: Spontaneous Vaginal Review of Systems Constitutional: Denies: Chills, Fever, Weight Change HEENT: Denies: Head Aches, Sinus Congestion, Sinus Drainage Cardiovascular: Denies: Chest Pain, Palpitations Gastrointestinal: Denies: Nausea, Vomiting Genitourinary: Denies: Dysuria Neurological: Denies: Numbness, Tingling, Focal weakness Psychiatric: Denies: Anxiety, Depression, Homicidal Ideations, Suicidal Ideations Physical Exam General: Alert, Oriented x3, No apparent distress HEENT: Atraumatic, Normocephalic Cardiovascular: Regular rate, Regular Rhythm, No murmurs Lungs: Clear to auscultation, No rhonchi, No wheeze Abdomen: Gravid Extremities:: No edema INSTRUMENT PROCESSING TECH: Normal external genitalia Estimated gestational size: Appropriate for gestational size Presentation: Cephalic Cervix Dilation (cm): 7 - Per nursing. SROM clear fluid Station: -2 Effacement (%): 80 Assessment/Plan All Active Problems (Last Updated 05/17/18 @ 05:41 by Melissa Soriano DO) (Acute) Headache in (Acute) Cramping affecting , antepartum (Acute) contractions (Acute) False labor after 37 weeks of gestation without delivery (Acute) Aplastic anemia (Acute) History of aplastic anemia (Acute) This is a 22 year-old, G [2], P [0010], at 38 weeks gestational age. Active labor, progressing Category 2 FHT P: 1) Admit to L&D, routine orders 2) Epidural for pain management 3) Discussed cord blood banking and patient has declined to have this done. 4) LARC declined 5) collaborative physician Norma Tapia, ROSARIO, CNM
--- NOTE | 2018-05-28 12:17 | PCM.PN.OB ---
Patient Problems: Active and Suspected Problems (Last Updated 05/17/18 @ 05:41 by Melissa Soriano DO) Aplastic anemia (Acute) History of aplastic anemia (Acute) Subjective: Doing well with pushing. Comfortable with epidural. FOB at bedside. Objective: Complete, +3 station. FHT 145, moderate variability, accels, variable decels, Category 2 TOCO: every 2-3 minutes. - Physical Exam Weight: 136 lb 3.931 oz Body Mass Index (BMI) 24.1 Intake and Output for Last 24 Hours 05/26/18 05/27/18 05/28/18 23:59 23:59 23:59 Intake Total 200 / 200 Output Total 600 / 600 Balance -400 / -400 Laboratory Tests Past 24 Hrs 05/28/18 05/28/18 05/28/18 05:30 05:30 06:30 WBC 9.0 RBC 3.20 L Hgb 11.2 L Hct 32.7 L MCV 102.2 H MCH 35.0 H MCHC 34.3 RDW 13.7 RDW Differential 49.4 H Plt Count 246 MPV 9.4 Urine Opiates Screen NEGATIVE Urine Methadone Screen NEGATIVE Ur Barbiturates Screen NEGATIVE Ur Phencyclidine Scrn NEGATIVE Ur Amphetamines Screen NEGATIVE U Methamphetamin-MDMA NEGATIVE U Benzodiazepines Scrn NEGATIVE Urine Cocaine Screen NEGATIVE U Cannabinoids Screen NEGATIVE Ur Drug Screen Comment Blood Type O POSITIVE Antibody Screen NEGATIVE Medical Necessity - Tobacco Use Smoking Status: Former smoker Assessment/Plan All Active Problems (Last Updated 05/17/18 @ 05:41 by Melissa Soriano DO) (Acute) Headache in (Acute) Cramping affecting , antepartum (Acute) contractions (Acute) False labor after 37 weeks of gestation without delivery (Acute) Aplastic anemia (Acute) History of aplastic anemia (Acute) A:Active labor, second stage, progressing Category 2 FHT P: 1) Anticipate vaginal delivery soon 2) updated on patient status.
[2018-05-28] MEDS: Oxytocin 30 units/NS 500 ml 30 UNITS/500 ML IV.SOLN 167 UNITS IV (12:42)
[2018-05-28] MEDS: Oxytocin 30 units/NS 500 ml 30 UNITS/500 ML IV.SOLN 334 UNITS IV (13:00)
--- NOTE | 2018-05-28 13:15 | PCM.OB.VAG ---
- Problem List (1) History of aplastic anemia Status: Acute (2) Vaginal delivery Status: Acute (3) Second degree perineal laceration Status: Acute Vaginal Delivery Maternal Presentation: Active Labor, Spontaneous Rupture of Membranes Amniotic Membrane Rupture Type: Spontaneous Amniotic Fluid Description: Clear Final JARON: 06/09/18 Gestational age: 38 Weeks and 2 Days Date of Procedure: 05/28/18 Pre-Operative Diagnosis: Active Labor Post-Operative Diagnosis: Vaginal delivery Surgery/ Procedure Performed: Spontaneous Vaginal Delivery Type of Anesthesia: Epidural, Local with 1% lidocaine Description of Procedure: Complete and pushing with good maternal effort. of viable male infant over 2nd degree perineal laceration. Infant delivered OP without complications, placed on maternal abdomen, strong cry and respiratory effort. APGARS 9,9. Pitocin started for active 3rd stage management. Cord clamped and cut after pulsations ceased by FOB. Placenta delivered with maternal effort via deonna, intact, 3 vessel cord. Perineum inspected and revealed 2nd degree perineal laceration. Repaired with 3.0 vicryl under epidural analgesia and 1% Lidocaine per patient request. Fundus firm, hemostasis achieved, EBL 300ml. Planning to breastfeed. Mom and baby stable, family bonding well. notified of delivery. Presentation: Vertex, ROP Placental Delivery Description: Spontaneous Placenta Disposition: [facility] Cord Vessel Description: 3 Vessels Estimated Blood Loss: 300ml A gender: Male (1 minute): 9 (5 minute): 9 Episiotomy Description: None Laceration: Perineal Extension/lac, 2nd degree Medications given after delivery: IV Pitocin
--- NOTE | 2018-05-28 13:21 | OP.PCM_ITS ---
- Problem List (1) History of aplastic anemia Status: Acute (2) Vaginal delivery Status: Acute (3) Second degree perineal laceration Status: Acute Vaginal Delivery Maternal Presentation: Active Labor, Spontaneous Rupture of Membranes Amniotic Membrane Rupture Type: Spontaneous Amniotic Fluid Description: Clear Final JARON: 06/09/18 Gestational age: 38 Weeks and 2 Days Date of Procedure: 05/28/18 Pre-Operative Diagnosis: Active Labor Post-Operative Diagnosis: Vaginal delivery Surgery/ Procedure Performed: Spontaneous Vaginal Delivery Type of Anesthesia: Epidural, Local with 1% lidocaine Description of Procedure: Complete and pushing with good maternal effort. of viable male infant over 2nd degree perineal laceration. Infant delivered OP without complications, placed on maternal abdomen, strong cry and respiratory effort. APGARS 9,9. Pitocin started for active 3rd stage management. Cord clamped and cut after pulsations ceased by FOB. Placenta delivered with maternal effort via deonna, intact, 3 vessel cord. Perineum inspected and revealed 2nd degree perineal laceration. Repaired with 3.0 vicryl under epidural analgesia and 1% Lidocaine p er patient request. Fundus firm, hemostasis achieved, EBL 300ml. Planning to breastfeed. Mom and baby stable, family bonding well. notified of delivery. Presentation: Vertex, ROP Placental Delivery Description: Spontaneous Placenta Disposition: [facility] Cord Vessel Description: 3 Vessels Estimated Blood Loss: 300ml Infant A gender: Male (1 minute): 9 (5 minute): 9 Episiotomy Description: None Laceration: Perineal Extension/lac, 2nd degree Medications given after delivery: IV Pitocin
[2018-05-28 15:00] VITALS: BP 105/59; PULSE 94; RESP 18; TEMP 37.1; O2SAT 97
[2018-05-28 15:55] VITALS: BP 101/62; PULSE 86; RESP 18; O2SAT 97
[2018-05-28 19:40] VITALS: BP 123/78; PULSE 108; RESP 18; TEMP 37.3
[2018-05-28] MEDS: Ibuprofen 600 MG Tablet PO (22:57)
[2018-05-29 00:30] VITALS: BP 120/65; PULSE 72; RESP 18; TEMP 37
[2018-05-29 04:35] VITALS: BP 124/78; PULSE 86; RESP 18; TEMP 36.8
[2018-05-29 08:00] VITALS: BP 121/60; PULSE 78; RESP 16; TEMP 36.7; O2SAT 97
--- NOTE | 2018-05-29 08:33 | PCM.PN.OB ---
Patient Problems: Active and Suspected Problems (Last Updated 05/17/18 @ 05:41 by Melissa Soriano DO) Aplastic anemia (Acute) History of aplastic anemia (Acute) Vaginal delivery (Acute) Second degree perineal laceration (Acute) Subjective: Patient doing well and has no complaints. Tolerating reg diet without N/V. Ambulating and spont void without difficulty. Normal lochia. without breast complaints. Pain controlled. Denies fevers, cp, sob, leg pain. Desires control pill. - Physical Exam General: Alert, Oriented x3 HEENT: Atraumatic Lungs: - - No increased resp effort Abdomen: Soft, Non Tender, - - FF@U-1 Extremities: No Calf Tenderness Skin: No rashes Neurological: Neuro grossly intact Psych/Mental Status: Normal Affect, Appropriate Vital Signs Temp Pulse Resp BP Pulse Ox 98.2 F 86 18 124/78 H 97 05/29/18 04:35 05/29/18 04:35 05/29/18 04:35 05/29/18 04:35 05/28/18 15:55 Oxygen Delivery Method Room Air Weight: 136 lb 3.931 oz Body Mass Index (BMI) 24.1 Intake and Output for Last 24 Hours 05/27/18 05/28/18 05/29/18 23:59 23:59 23:59 Intake Total 3388 / 3388 Output Total 3200 / 3200 Balance 188 / 188 Medical Necessity - Tobacco Use Smoking Status: Former smoker Assessment/Plan All Active Problems (Last Updated 05/17/18 @ 05:41 by Melissa Soriano DO) (Acute) Headache in (Acute) Cramping affecting , antepartum (Acute) contractions (Acute) False labor after 37 weeks of gestation without delivery (Acute) Aplastic anemia (Acute) History of aplastic anemia (Acute) Vaginal delivery (Acute) Second degree perineal laceration (Acute) day # 1 s/p - Doing well - AF, VSS - - PPBC: Desires Micronor, rx sent - Dispo: Routine care. D/c tomorrow
[2018-05-29] MEDS: Ibuprofen 600 MG Tablet PO ×2 (10:09→21:40)
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
[2018-05-29 12:02] VITALS: BP 119/73; PULSE 76; RESP 18; TEMP 37.2; O2SAT 97
--- NOTE | 2018-05-29 14:22 | NURSING ---
Agree with assessment by Angelito, student nurse.
[2018-05-29 15:56] VITALS: BP 111/70; PULSE 82; RESP 18; TEMP 36.9; O2SAT 97
[2018-05-29 20:30] VITALS: BP 113/59; PULSE 100; RESP 18; TEMP 36.8; O2SAT 96
[2018-05-29] MEDS: Senna/Docusate Sodium 1 Tablet PO (21:38)
[2018-05-30 01:10] VITALS: BP 110/59; PULSE 80; RESP 16; TEMP 36.7; O2SAT 98
--- NOTE | 2018-05-30 07:46 | PCM.PN.OB ---
Patient Problems: Active and Suspected Problems (Last Updated 05/17/18 @ 05:41 by Melissa Soriano DO) Aplastic anemia (Acute) History of aplastic anemia (Acute) Vaginal delivery (Acute) Second degree perineal laceration (Acute) Subjective: Patient doing well. Pain controlled. Tolerating reg diet without N/V. Voiding and ambulating without difficulty. with some difficulty with latching. Normal lochia. No fevers, cp, sob, leg pain. - Physical Exam General: Alert, Oriented x3 HEENT: Atraumatic Lungs: - - No increased resp effort Abdomen: Soft, Non Tender, - - FF@U-2 Extremities: No edema, No Calf Tenderness Skin: No rashes Neurological: Neuro grossly intact Psych/Mental Status: Normal Affect, Appropriate Vital Signs Temp Pulse Resp BP Pulse Ox 98.1 F 80 16 110/59 L 98 05/30/18 01:10 05/30/18 01:10 05/30/18 01:10 05/30/18 01:10 05/30/18 01:10 Oxygen Delivery Method Room Air Weight: 136 lb 3.931 oz Body Mass Index (BMI) 24.1 Intake and Output for Last 24 Hours 05/28/18 05/29/18 05/30/18 23:59 23:59 23:59 Intake Total 3388 / 3388 Output Total 3200 / 3200 Balance 188 / 188 Medical Necessity - Tobacco Use Smoking Status: Former smoker Assessment/Plan All Active Problems (Last Updated 05/17/18 @ 05:41 by Melissa Soriano DO) (Acute) Headache in (Acute) Cramping affecting , antepartum (Acute) contractions (Acute) False labor after 37 weeks of gestation without delivery (Acute) Aplastic anemia (Acute) History of aplastic anemia (Acute) Vaginal delivery (Acute) Second degree perineal laceration (Acute) Pospartum day #2 s/p - Doing well - - Micronor sent to pharmacy - DIspo: D/c home. To follow up for visit
--- NOTE | 2018-05-30 07:54 | DCINST_ITS ---
Discharge Diet: No Restrictions Discharge Activity: Return to Normal Activity, May Shower May resume sexual activity in: 4-6 weeks Weight Bearing Status: Full weight bearing Lifting Restrictions: None Call your doctor if you observe: Fever of 101 or Higher, Inability to urinate, Inability to have a bowel movement, Using more than one pad per hour, Shortness of breath, Chest pain, Calf discomfort, Uncontrolled pain Additional Instructions: If you experience any of the following, contact your healthcare provider. * Bleeding that soaks a pad every hour for 2 hours * Fever 100.4 or higher * Unrelieved incision or abdominal pain * Swelling, redness, discharge or bleeding from your incision or episiotomy site * Your incision begins to separate * Problems urinating (including inability to urinate or burning while urinating). * Visual changes * Severe headache * Flu-like symptoms * Pain or redness in one of both of your breasts * Pain, warmth, tenderness or swelling in your legs, especially the calf area * Frequent nausea and vomiting * Symptoms of depression or anxiety If you experience any of the following, call 911 or go to the nearest Emergency Room. * Chest pain * Problems breathing * Seizure activity * Partial or complete paralysis of a body part, slurred speech, weakness or drooping of the face, or a sudden inability to walk or hold your balance Allergies/Adverse Reactions: Allergies No Known Allergies Allergy (Verified 05/28/18 05:18) Medications to take at Discharge Cyanocobalamin (Vitamin B-12) [Vitamin B-12] 1,000 units PO DAILY 05/28/18 Norethindrone [Ortho Micronor] 0.35 mg PO DAILY #30 tablet 05/29/18 The following prescriptions were given: Norethindrone [Ortho Micronor] 0.35 mg PO DAILY #30 tablet When: Follow up in 4 weeks for visit Primary Care Physician: Jessica Jay MD [Primary Care Provider] - Test Results: Test results from this visit will be discussed in further detail at your follow- up appointment, if applicable.
[2018-05-30] MEDS: Ibuprofen 600 MG Tablet PO (08:47)
[2018-05-30] MEDS: Senna/Docusate Sodium 1 Tablet PO (08:47)
[2018-05-30 09:30] VITALS: BP 94/44; PULSE 84; RESP 16; TEMP 36.8
[2018-05-30 13:30] VITALS: BP 94/44; PULSE 84; RESP 16; TEMP 36.8
--- NOTE | 2018-06-11 10:03 | CASEMGMT ---
Social Work Labor and Delivery Unit [facility] referral submitted via the [facility]'s secure web based referral form for [facility]. Meconium drug screen for baby is negative for drugs of abuse. -BESSIE Fish, PROGRAMMING DEVELOPMENT PROJECT MANAGER
== END 2018-05-30 13:30 | disposition home or self-care (01) | DRG 560 ==
PROVIDERS: Obstetrics & Gynecology; Admitting Provider Obstetrics & Gynecology; Family Provider Internal Medicine; PCP Internal Medicine; Referring Provider Obstetrics & Gynecology; Visit Provider Obstetrics & Gynecology
DX: O75.89 Other specified complications of labor and delivery (principal); E53.8 Deficiency of other specified B group vitamins; O70.1 Second degree perineal laceration during delivery; Z86.2 Personal history of diseases of the blood and blood-forming organs and certain disorders involving the immune mechanism; Z87.891 Personal history of nicotine dependence; Z3A.38 38 weeks gestation of pregnancy; Z37.0 Single live birth
CPT/HCPCS: 59025; 59050; 80307; 85027; 86850; 86900; 99218; J7120; G0378

== ENCOUNTER 2018-06-02 11:05 | Outpatient (CLI) | payer MEDICAID, SELFPAY | END 2018-06-02 12:15 | disposition home or self-care (01) | LOC: WPOUT 11:07 → WP 11:07 | PROVIDERS: Family Provider Internal Medicine; PCP Internal Medicine; Referring Provider Obstetrics & Gynecology; Visit Provider Obstetrics & Gynecology | DX: Z39.1 Encounter for care and examination of lactating mother (principal) ==

== ENCOUNTER 2018-08-21 15:40 | Emergency (ER) | payer MEDICAID, SELFPAY ==
[2018-08-21 15:41] VITALS: BP 103/59; PULSE 89; RESP 14; TEMP 37.1; O2SAT 97; BMI 20.2
--- NOTE | 2018-08-21 16:16 | ED.DCSUM_ITS ---
- ER Visit Summary Date of Service: 08/21/18 Chief Complaint: Gastrointestinal bleeding History of Present Illness: The patient is a 23 F who presents with blood in her stools that occurred today. Patient states she had one episode of blood in her stools today. Patient states she had 2 clots approximately the size of a quarter that she passed from her rectum. Patient denies any pain. Patient had patient denies any lightheadedness or dizziness. Patient denies any melena. Patient denies any nausea or vomiting. Patient denies any hematemesis. Patient states she called her GI specialist in [place] who told her to come to the emergency department. Physical Examination: Vital signs are stable. Patient is afebrile. Patient is in no acute distress. Oral mucosa is pink and moist. Neck is supple. Trachea is midline. There is no JVD noted. Heart was regular rate and rhythm. Lungs are clear and equal bilaterally. Abdomen is soft and nontender. Bowel sounds are normal. Cranial nerves II through XII are intact. There are no focal motor or sensory deficits noted. The remaining physical exam is within normal limits. Test Results: CBC showed a white blood cell count 3.1. Hemoglobin was normal. Stool was Hemoccult positive. Comprehensive metabolic profile was within normal limits. Emergency Department Course and Treatment: There was brown stool that was Hemoccult positive. Patient is asymptomatic. Patient is not anemic. Patient was instructed to follow-up with her office coordinator receptionist in 5-7 days. Patient was instructed on signs and symptoms that should prompt return to the emergency department. Patient and family understood and were agreeable with the plan. All questions were answered. Disposition: Discharged home Impression: Lower gastrointestinal bleeding This note was generated with [employer] dictation software. It may contain incorrect words, spelling, and punctuation that were not noted in review of the chart prior to signing ED Disposition - Plan for ED Patient: Disposition: Home or Assisted Living Chief Complaint: GI Bleed Diagnosis: Lower gastrointestinal bleeding Instructions: ED Hematochezia Stable Referrals: Jessica Jay MD [Primary Care Provider] -
[2018-08-21 16:47] LABS: Anion Gap 6 (5-15); BUN 11 mg/dL (7-18); BUN/Creat Ratio 13.7 RATIO (10-20); Calcium,Total 8.4 mg/dL (8.5-10.1); Chloride 109 mmol/L (98-107); EST Glomerular Filtration Rate 95 mL/min (>60); Est Glom Filt Rate - Afr Amer 115 mL/min (>60); Estimated Creatinine Clearance 90.04 ml/min; Glucose 89 mg/dL (74-106); Potassium 3.8 mmol/L (3.5-5.1); Sodium Level 142 mmol/L (136-145)
[2018-08-21 16:49] LABS: Absolute Lymphocyte Count 1.12 X10^3/ul (0.83-4.51); Absolute Neutrophil Count 1.8 X10^3/uL (2.0-7.7); Basophil# 0.01 X10^3/uL; Basophil% 0.3 % (0-1); Eosinophil# 0.02 X10^3/uL; Eosinophils% 0.6 % (0-5); Hematocrit 36.4 % (37-47); Lymphocyte # 1.12 X10^3/ul (4.0); Lymphocyte % 36.2 % (19-41); Mean Corpuscular Hgb 32.5 pg (27.0-32.0); Mean Corpuscular Volume 98.6 fL (81-99); Monocyte# 0.16 X10^3/uL; Monocyte% 5.2 % (0-10); Neutrophil # 1.78 X10^3/uL (2.7-7.7); Neutrophil % 57.7 % (47-70); Platelet Count 214 K/mm3 (150-450); RBC Distribution Width CV 12.3 % (11.6-14.6); RBC Distribution Width SD 42.7 fl (35.1-43.9); Red Blood Count 3.69 M/mm3 (4.2-5.4); White Blood Count 3.1 K/mm3 (4.4-11.0)
[2018-08-21 16:51] LABS: POSITIVE COUNT NO; POSITIVE DIFFERENTIAL NO; POSITIVE MORPHOLOGY NO
[2018-08-21 16:56] LABS: Prothrombin Time (Protime)PT. 13.1 SECONDS (11.7-14.9)
[2018-08-21 16:57] LABS: Partial Thromboplast Time 27.9 Seconds (24.1-36.2)
[2018-08-21 17:58] LABS: Pregnancy, Serum, hCG Quali. NEGATIVE Negative (0-9 Nonpreg)
[2018-08-21 17:59] VITALS: BP 127/63; PULSE 71; RESP 15; O2SAT 98
--- NOTE | 2018-08-21 18:30 | ED.RN ---
ppos blood in stool called from the lab. dr mckeon aware
[2018-08-21 19:11] VITALS: BP 122/67; PULSE 71; RESP 15; O2SAT 99
== END 2018-08-21 19:13 | disposition home or self-care (01) ==
PROVIDERS: Emergency Provider Emergency Medicine; Family Provider Internal Medicine; PCP Internal Medicine
DX: K92.2 Gastrointestinal hemorrhage, unspecified (principal); K92.1 Melena; Z86.2 Personal history of diseases of the blood and blood-forming organs and certain disorders involving the immune mechanism
CPT/HCPCS: 80048; 82274; 84703; 85025; 85610; 85730; 99283; A4216

== ENCOUNTER 2018-09-18 20:55 | Emergency (ER) | payer MEDICAID, SELFPAY ==
[2018-09-18 20:57] VITALS: BP 120/84; PULSE 80; RESP 16; TEMP 36.7; O2SAT 98; BMI 21.5
--- NOTE | 2018-09-18 21:13 | ED.VISSUMM ---
- ER Visit Summary Date of Service: 09/18/18 Chief Complaint: Facial laceration History of Present Illness: The patient is a 23 F presents for evaluation facial laceration current 6 PM this evening. Playing with her friends kai, states there is another one, states the other dog is excited jumped on her feeling of scratch above the right eye. No active bleeding. No anticoagulation medicines. Tetanus was year ago when she was . No eye injury or visual changes. No other complaints. Physical Examination: General: Alert and oriented ?3, no acute distress HEENT: Normocephalic, 3 cm superficial laceration right eye orbital rim laterally, no subcu exposure. No active bleeding. No eye involvement. Small ecchymosis at the lateral canthus. Moist mucosa membranes Neck: supple, nontender. Cardiovascular: Regular rate and rhythm, no murmurs Respiratory: Normal breath sounds, symmetric, no distress Abdomen: Soft, nontender, nondistended Extremities: Nontender, no edema, pulses intact ?4 Neuro: no focal neurological deficits. Test Results: [] Emergency Department Course and Treatment: Patient with superficial laceration. Discussed with patient good wound care, discussed with patient suturing likely will cause more damage and scarring. She understands. Patient bacitracin placed, she will follow-up with PCP. All questions were answered. Treatment Plan: [] Disposition: Discharge Impression: Superficial facial laceration This note was generated with Giggzo dictation software. It may contain incorrect words, spelling, and punctuation that were not noted in review of the chart prior to signing ED Disposition - Plan for ED Patient: Disposition: Home or Assisted Living Instructions: ED Laceration All Referrals: Jessica Jay MD [Primary Care Provider] - 5-7 Days
[2018-09-18] MEDS: BACITRACIN 15 GM Tube 1 APPLIC TOPICAL (21:25)
== END 2018-09-18 21:26 | disposition home or self-care (01) ==
LOC: ED 21:26
PROVIDERS: Emergency Provider Emergency Medicine; Family Provider Internal Medicine; PCP Internal Medicine
DX: S01.111A Laceration without foreign body of right eyelid and periocular area, initial encounter (principal); W54.1XXA Struck by dog, initial encounter; Y93.9 Activity, unspecified; Y92.9 Unspecified place or not applicable; Y99.9 Unspecified external cause status
CPT/HCPCS: 99282

== ENCOUNTER 2021-05-18 03:26 | Emergency (ER) | payer MEDICAID, SELFPAY ==
[2021-05-18 03:27] VITALS: BP 113/71; PULSE 64; RESP 18; TEMP 36; O2SAT 98; BMI 23.4
[2021-05-18 04:05] LABS: Absolute Lymphocyte Count 0.45 X10^3/uL (0.83-4.51); Absolute Neutrophil Count 2.9 X10^3/uL (2.0-7.7); Basophil# 0.01 X10^3/uL; Basophil% 0.3 % (0-1); Eosinophil# 0.02 X10^3/uL; Eosinophils% 0.6 % (0-5); Hematocrit 40.2 % (37-47); Hemoglobin 13.5 g/dL (12.0-15.0); Lymphocyte # 0.45 X10^3/ul (0.83-4.51); Lymphocyte % 12.6 % (19-41); Mean Corp Hgb Conc 33.6 g/dL (32-36); Mean Corpuscular Hgb 33.8 pg (27.0-32.0); Mean Corpuscular Volume 100.8 fL (81-99); Mean Platelet Vol. 8.8 fl (6.2-12.0); Monocyte# 0.14 X10^3/uL; Monocyte% 3.9 % (0-10); NRBC Flagged by Analyzer 0 % (0-5); Neutrophil # 2.93 X10^3/uL (2.7-7.7); Neutrophil % 82.3 % (47-70); POSITIVE DIFFERENTIAL YES; Platelet Count 232 K/mm3 (150-450); RBC Distribution Width CV 12.3 % (11.6-14.6); RBC Distribution Width SD 45.8 fl (35.1-43.9); Red Blood Count 3.99 M/mm3 (4.2-5.4); White Blood Count 3.6 K/mm3 (4.4-11.0)
[2021-05-18 04:06] LABS: Differential Indicated SCAN CRITERIA MET
[2021-05-18 04:15] LABS: Internal QC Validated? YES +Cl - CLEAR BKGD; Pregnancy, Serum, hCG Quali. NEGATIVE Negative
--- NOTE | 2021-05-18 04:17 | EDS_ITS ---
HPI History of Present Illness Chief Complaint: Nausea/Vomiting Informant: patient Narrative Narrative: Patient started to get some mild nausea on Saturday. Since Saturday she has had several episodes of vomiting. She has tried to drink some liquids. No real diarrhea. She states her stomach really does not hurt it is just a little bit cramping before she vomits. She also notices that when she vomits she feels lightheaded and she gets tingling in her fingertips. She also gets a feeling of cramping. This only occurs while vomiting. She has no chest pain. She has had no fevers or chills. No urinary symptoms. She does not have menstrual cycles as she has been on Depo shot for several years and is up-to-date. Patient does have one sick contact. Her son had vomiting the day before she started her symptoms. However he resolved and is fine after that 1 day. Patient does have a history of aplastic anemia as a child. She follows up with a specialist in [place] and they just watch her blood counts to make sure she is not having a return. Only medication is Depo shot. No known drug allergies No prior surgeries There is a family history of leukemia and aplastic anemia. Patient's never been a smoker. Lives at home with family and with her son part-time. [facility] Medical History Anxiety Aplastic anemia History of miscarriage Vitamin B12 deficiency Home Medications medroxyprogesterone mg IM 05/18/21 [History Last Taken Unknown] ondansetron 4 mg PO Q8H PRN #10 tab 05/18/21 [Rx Last Taken Unknown] promethazine 25 mg PO TID PRN #10 tab 05/18/21 [Rx Last Taken Unknown] Allergy/AdvReac Type Severity Reaction Status Date / Time No Known Allergies Allergy Verified 05/18/21 03:27 Social History Smoking Status: Never smoker ROS ROS ED Constitutional Constitutional ED: Denies chills, fever(s) or weight loss Eyes Eyes: Denies blurry vision or change in vision ENT ENT ED: Denies rhinorrhea or sore throat Cardiovascular Cardiovascular: Denies chest pain or palpitations Respiratory/Chest Respiratory/Chest: Denies cough or dyspnea Gastrointestinal Gastrointestinal: Reports nausea and vomiting; Denies abdominal pain, constipation, diarrhea or melena Genitourinary Genitourinary ED: Denies dysuria, hematuria or urinary frequency Musculoskeletal Musculoskeletal: Denies arthralgias or myalgias Integumentary Denies rash Neurologic Neurologic: Denies paresthesias or weakness Endocrine Endocrinology: Denies polydipsia or polyuria Allergic/Immunologic Allergic/Immunologic ED: Denies urticaria EXAM Physical Exam Const Vital Signs: 05/18/21 03:27 Temperature 96.8 F L Temperature Source Temporal Pulse Rate 64 Respiratory Rate 18 Blood Pressure 113/71 Blood Pressure Mean 85 Pulse Ox 98 Oxygen Delivery Method Room Air Positive well nourished and well developed General Appearance ED: well developed and NAD HEENT Reports moist mucous membranes Eyes General Eye ED: Negative for pale conjunctiva or scleral icterus Chest Wall inspection of chest normal Resp normal respiratory effort and clear to auscultation bilaterally Auscultation: Negative for rales, rhonchi or wheezes Cardio regular rate, regular rhythm and no murmurs GI normal to inspection, nondistended, normoactive bowel sounds, non-tender and non-distended Auscultation: normoactive bowel sounds Palpation: soft Back/Spine no CVA tenderness Extremity normal to inspection Neuro oriented x3 Sensorium / Orientation: alert Psych mental status grossly normal Skin no rashes or lesions noted MDM MDM MDM Narrative Medical decision making narrative: Patient's blood work show essentially normal electrolytes. Urine did show some ketones but no sign of infection. was negative. White count was a little bit low. Hemoglobin was normal. She does tend to run a lower white count. Patient was rechecked. She has had some sips of water and tolerated them. However, she still has some nausea. It is better but it still present. I will get her some Phenergan here. Her abdomen is still benign. She is comfortable going home. I will write for Phenergan and Zofran. We discussed slowly increasing her diet and we discussed reasons to return which would be fevers, pain, recurrent vomiting and unable to keep fluids down or other concerns. My suspicion is that this is likely a viral illness. It came on the day after her child had symptoms. Her symptoms are just going on longer. Lab Data Attestation: I reviewed the patient's lab results. Labs: Laboratory Results - last 24 hr 05/18/21 05/18/21 05/18/21 03:44 03:44 03:44 WBC 3.6 L RBC 3.99 L Hgb 13.5 Hct 40.2 MCV 100.8 H MCH 33.8 H MCHC 33.6 RDW Std Deviation 45.8 H RDW Coeff of Raven 12.3 Plt Count 232 MPV 8.8 Immature Gran % (Auto) 0.300 Neut % (Auto) 82.3 H Lymph % (Auto) 12.6 L [place] % (Auto) 3.9 Eos % (Auto) 0.6 Baso % (Auto) 0.3 Absolute Neuts (auto) 2.9 Absolute Lymphs (auto) 0.45 L Nucleated RBC % 0 Differential Comment SCANNED Diff Path Review May foll Sodium 140 Potassium 3.5 Chloride 107 Carbon Dioxide 24.0 Anion Gap 9 BUN 12 Creatinine 0.78 Estim Creat Clear Calc 92.00 Est GFR (MDRD) Af Amer 116 Est GFR (MDRD) Non-Af 96 BUN/Creatinine Ratio 15.4 Glucose 111 H Calcium 8.7 Serum , Qual NEGATIVE Urine Color Urine Clarity Urine pH Ur Specific [place] Urine Protein Urine Glucose (UA) Urine Ketones Urine Occult Blood Urine Nitrite Urine Bilirubin Urine Urobilinogen Ur Leukocyte Esterase Urine RBC Urine WBC Ur Squamous Epith Cells Urine Bacteria Urine Mucus 05/18/21 05:20 WBC RBC Hgb Hct MCV MCH MCHC RDW Std Deviation RDW Coeff of Raven Plt Count MPV Immature Gran % (Auto) Neut % (Auto) Lymph % (Auto) [place] % (Auto) Eos % (Auto) Baso % (Auto) Absolute Neuts (auto) Absolute Lymphs (auto) Nucleated RBC % Differential Comment Diff Path Review Sodium Potassium Chloride Carbon Dioxide Anion Gap BUN Creatinine Estim Creat Clear Calc Est GFR (MDRD) Af Amer Est GFR (MDRD) Non-Af BUN/Creatinine Ratio Glucose Calcium Serum , Qual Urine Color Yellow Urine Clarity Clear Urine pH 8.0 Ur Specific [place] 1.010 Urine Protein 15 H Urine Glucose (UA) Normal Urine Ketones 50 H Urine Occult Blood Negative Urine Nitrite Negative Urine Bilirubin Negative Urine Urobilinogen 1 H Ur Leukocyte Esterase Negative Urine RBC 0 SEEN Urine WBC 0 SEEN Ur Squamous Epith Cells 0-5 SEEN Urine Bacteria 1+ Urine Mucus 0 SEEN Discharge Plan Triage Chief Complaint: Nausea/Vomiting ED Provider: Christopher Byrd Dx/Rx/DC Orders Clinical Impression: Nausea & vomiting Instructions: ED Vomiting (Adult) Prescriptions: New ondansetron 4 mg tablet,disintegrating 4 mg PO Q8H PRN (Reason: nausea and vomiting) Qty: 10 RF: 0 promethazine 25 mg tablet 25 mg PO TID PRN (Reason: nausea and vomiting) Qty: 10 RF: 0 No Action medroxyprogesterone 150 mg/mL suspension IM RF: 0 Primary Care Provider: Jessica Jay Referrals: Jessica Jay MD [Primary Care Provider] - 1-2 Days if not improving Disposition Disposition: Home, Self Care
[2021-05-18 04:18] LABS: Anion Gap 9 (5-15); BUN 12 mg/dL (7-18); BUN/Creat Ratio 15.4 RATIO (10-20); Calcium,Total 8.7 mg/dL (8.5-10.1); Chloride 107 mmol/L (98-107); Creatinine, Serum 0.78 mg/dL (0.55-1.02); EST Glomerular Filtration Rate 96 mL/min (>60); Est Glom Filt Rate - Afr Amer 116 mL/min (>60); Glucose 111 mg/dL (74-106); Potassium 3.5 mmol/L (3.5-5.1); Sodium Level 140 mmol/L (136-145)
[2021-05-18] MEDS: 0.9% Normal Saline 1,000 ML 1000 ML IV (04:25)
[2021-05-18] MEDS: Ondansetron 4 MG/2 ML Vial IV (04:25)
[2021-05-18 04:33] LABS: Differential Comment SCANNED
[2021-05-18 05:27] LABS: Mucous, Urine 0 SEEN /hpf (<or=2+); Red Blood Cells-Urine 0 SEEN /hpf (0-5); White Blood Cells 0 SEEN /hpf (0-5)
[2021-05-18 05:28] LABS: Color, Urine Yellow (Yellow); Glucose, Dipstick Normal (Normal); Ketone-Dipstick 50 mg/dl (Negative); Leukocyte Esterase-Dipstick Negative /ul (Negative); Nitrite-Dipstick Negative (Negative); Occult Blood-Urine Negative /ul (Negative); Protein-Dipstick 15 mg/dl (Negative); Urine Bilirubin Dipstick Negative (Negative); Urine Clarity Clear (Clear); Urine Urobilinogen 1 mg/dl (Normal)
[2021-05-18 05:51] LABS: Squamous Epithelial Cells - UA 0-5 SEEN /hpf (5-10)
[2021-05-18 05:52] LABS: Bacteria 1+ /hpf (None Seen)
[2021-05-18] MEDS: proMETHazine 25 MG/ML Syringe 12.5 MG IM (06:20)
[2021-05-18 06:44] VITALS: RESP 15
[2021-05-19 13:31] LABS: Pathologist Review Reviewed
== END 2021-05-18 06:44 | disposition home or self-care (01) ==
PROVIDERS: Emergency Provider Emergency Medicine; PCP Internal Medicine
DX: R11.2 Nausea with vomiting, unspecified (principal); R42 Dizziness and giddiness; E53.8 Deficiency of other specified B group vitamins; F41.9 Anxiety disorder, unspecified; Z79.3 Long term (current) use of hormonal contraceptives; Z79.899 Other long term (current) drug therapy
CPT/HCPCS: 80048; 81001; 84703; 85025; 96361; 96372; 96374; 99283; A4216; J2405

== ENCOUNTER 2021-05-29 22:15 | Emergency (ER) | payer MEDICAID, SELFPAY ==
[2021-05-29 22:15] VITALS: BP 114/68; PULSE 71; RESP 16; TEMP 36.6; O2SAT 99; BMI 24.3
--- NOTE | 2021-05-29 22:39 | CT_ITS ---
STUDY: CT ABDOMEN AND PELVIS WITH CONTRAST REASON FOR EXAM: Female, 25 years old. abd pain, N V D RADIATION DOSAGE (If Supplied By Facility): CTDIvol = ( 8.91 ) mGy, DLP = ( 377.01 ) mGycm TECHNIQUE: Transaxial images were obtained from the dome of the diaphragm to the symphysis pubis without oral contrast. IV 100mL Isovue-370 was administered. Sagittal and coronal images were reconstructed. Individualized dose optimization techniques were used for this CT. COMPARISON: None. FINDINGS: The visualized lung bases are unremarkable. The visualized portions of the heart are within normal limits. Normal liver. Normal gallbladder and extrahepatic biliary system. Normal spleen. Normal pancreas. Normal bilateral adrenal glands. Normal right kidney. Normal left kidney. Normal visualized stomach. Normal small intestine. Moderate fecal retention throughout the colon. The appendix is visualized and appears normal. Normal abdominal aorta. Normal inferior vena cava. Normal retroperitoneum. Normal urinary bladder. Normal visualized uterus. Normal abdominal wall. Normal osseous structures. CT/Abdomen/Pelvis W IV Cont ONLY IMPRESSION: Moderate constipation. Unremarkable appendix. No acute findings Electronically Signed: Emile Quintero DO at 0:18 EDT Tel , Service support ,
--- NOTE | 2021-05-29 22:40 | EDS_ITS ---
HPI History of Present Illness Chief Complaint: Nausea/Vomiting/Diarrhea Informant: patient Narrative Narrative: Patient presents still having symptoms. She was seen here about 12 days ago for nausea and vomiting. She states she went home and she got better for about 2 or 3 days. But then the symptoms seem to be coming back mildly. She had a child who had symptoms for about a day or so. They are fine now. She states she gets some epigastric pain but then it radiates to the whole whole abdomen on occasion. She has never had fevers chills. No coughing. No myalgias. She sometimes gets diarrhea and sometimes is constipated. She denies urinary symptoms. No vaginal discharge. No menstrual cycles that she has been on Depo for a long time and is up-to-date on her shots. Patient is able to eat and drink. She gets nausea or vomiting mostly in the mo rning and sometimes at night. She did vomit this morning but then had a ham and cheese sandwich for breakfast and she ate spaghetti tonight. She did not vomit either one of them. She has no history of abdominal surgeries. Past medical history: Aplastic anemia Medication reviewed list No known drug allergies No abdominal surgeries Non-smoker lives with child [facility] Medical History Anxiety Aplastic anemia History of miscarriage Vitamin B12 deficiency Home Medications medroxyprogesterone mg IM QMONTH 05/18/21 [History Last Taken Unknown] ondansetron 4 mg PO Q8H PRN #10 tab 05/18/21 [Rx Last Taken Unknown] promethazine 25 mg PO TID PRN #10 tab 05/18/21 [Rx Last Taken Unknown] esomeprazole magnesium [Nexium] 20 mg PO DAILY #30 cap 05/30/21 [Rx Last Taken Unknown] ondansetron 4 mg PO Q8H PRN #10 tab 05/30/21 [Rx Last Taken Unknown] promethazine 25 mg PO TID PRN #10 tab 05/30/21 [Rx Last Taken Unknown] Allergy/AdvReac Type Severity Reaction Status Date / Time No Known Allergies Allergy Verified 05/29/21 22:17 Social History Smoking Status: Never smoker ROS ROS ED Constitutional Constitutional ED: Denies chills or fever(s) ENT ENT ED: Denies rhinorrhea or sore throat Cardiovascular Cardiovascular: Denies chest pain Respiratory/Chest Respiratory/Chest: Denies cough, dyspnea or sputum Gastrointestinal Gastrointestinal: Reports constipation, diarrhea, nausea and vomiting; Denies abdominal pain or melena Genitourinary Genitourinary ED: Denies dysuria or hematuria Musculoskeletal Musculoskeletal: Denies myalgias Neurologic Neurologic: Denies headache(s) Endocrine Endocrinology: Denies polydipsia or polyuria Allergic/Immunologic Allergic/Immunologic ED: Denies mouth swelling or urticaria EXAM Physical Exam Const Vital Signs: 05/29/21 22:15 Temperature 97.9 F Temperature Source Temporal Pulse Rate 71 Respiratory Rate 16 Blood Pressure 114/68 Blood Pressure Mean 83 Pulse Ox 99 Oxygen Delivery Method Room Air Positive well nourished and well developed General Appearance ED: well developed and NAD; Negative for pallor HEENT Reports moist mucous membranes Eyes EOMs intact bilaterally Neck no JVD Resp normal respiratory effort and clear to auscultation bilaterally Auscultation: Negative for rales, rhonchi or wheezes Cardio regular rate and regular rhythm GI normal to inspection, nondistended, normoactive bowel sounds and non-distended GI Narrative: Patient has very minimal epigastric area tenderness. Auscultation: normoactive bowel sounds Palpation: soft Back/Spine no CVA tenderness Extremity normal to inspection Neuro oriented x3 Sensorium / Orientation: alert Psych mental status grossly normal Skin no rashes or lesions noted and no wounds General Skin Exam: Negative for jaundice or pallor MDM MDM MDM Narrative Medical decision making narrative: CBC electrolytes liver function test lipase and are all normal. CT shows constipation but no other process. I do not think constipation is the only source of her symptoms. We will get her started on Nexium. I think there is a good chance she has some gastritis with her primary morning and evening symptoms. I will also write for some more Zofran and Phenergan as she is about out. Lab Data Attestation: I reviewed the patient's lab results. Labs: Laboratory Results - last 24 hr 05/29/21 05/29/21 05/29/21 22:50 22:50 22:50 WBC 6.8 RBC 3.84 L Hgb 13.3 Hct 38.8 MCV 101.0 H MCH 34.6 H MCHC 34.3 RDW Std Deviation 47.1 H RDW Coeff of Raven 12.6 Plt Count 230 MPV 8.7 Immature Gran % (Auto) 0.100 Neut % (Auto) 65.3 Lymph % (Auto) 28.8 [place] % (Auto) 4.8 Eos % (Auto) 0.7 Baso % (Auto) 0.3 Absolute Neuts (auto) 4.4 Absolute Lymphs (auto) 1.96 Nucleated RBC % 0 Sodium 141 Potassium 3.8 Chloride 107 Carbon Dioxide 27.0 Anion Gap 7 BUN 10 Creatinine 0.88 Estim Creat Clear Calc 81.54 Est GFR (MDRD) Af Amer 101 Est GFR (MDRD) Non-Af 83 BUN/Creatinine Ratio 11.4 Glucose 119 H Calcium 8.6 Total Bilirubin 0.30 AST 22 ALT 26 Alkaline Phosphatase 86 Total Protein 7.7 Albumin 3.9 Globulin 3.8 Albumin/Globulin Ratio 1.0 Lipase 277 Serum , Qual NEGATIVE Radiography Diagnostic Testing: Clinical Impression(s) from Imaging Studies Abdomen/Pelvis CT 05/29/21 22:39 IMPRESSION: Moderate constipation. Unremarkable appendix. No acute findings Electronically Signed: Emile Quintero DO at 0:18 EDT Tel , Service support , Discharge Plan Triage Chief Complaint: Nausea/Vomiting/Diarrhea ED Provider: Christopher Byrd Dx/Rx/DC Orders Clinical Impression: Nausea & vomiting, Gastritis Instructions: Nausea Vomit Control, ED PEPTIC ULCER vs GASTRITIS Prescriptions: New promethazine 25 mg tablet 25 mg PO TID PRN (Reason: nausea and vomiting) Qty: 10 RF: 0 esomeprazole magnesium [Nexium] 20 mg capsule,delayed release(DR/EC) 20 mg PO DAILY Qty: 30 RF: 0 ondansetron 4 mg tablet,disintegrating 4 mg PO Q8H PRN (Reason: nausea and vomiting) Qty: 10 RF: 0 No Action medroxyprogesterone 150 mg/mL suspension IM QMONTH RF: 0 ondansetron 4 mg tablet,disintegrating 4 mg PO Q8H PRN (Reason: nausea and vomiting) Qty: 10 RF: 0 promethazine 25 mg tablet 25 mg PO TID PRN (Reason: nausea and vomiting) Qty: 10 RF: 0 Primary Care Provider: Jessica Jay Referrals: Jessica Jay MD [Primary Care Provider] - 3-5 Days Disposition Disposition: Home, Self Care
[2021-05-29] MEDS: 0.9% Normal Saline 1,000 ML 1000 ML IV (22:55)
[2021-05-29] MEDS: Ondansetron 4 MG/2 ML Vial IV (22:55)
[2021-05-29 22:58] LABS: Absolute Lymphocyte Count 1.96 X10^3/uL (0.83-4.51); Absolute Neutrophil Count 4.4 X10^3/uL (2.0-7.7); Basophil# 0.02 X10^3/uL; Basophil% 0.3 % (0-1); Eosinophil# 0.05 X10^3/uL; Eosinophils% 0.7 % (0-5); Hematocrit 38.8 % (37-47); Hemoglobin 13.3 g/dL (12.0-15.0); Lymphocyte # 1.96 X10^3/ul (0.83-4.51); Lymphocyte % 28.8 % (19-41); Mean Corp Hgb Conc 34.3 g/dL (32-36); Mean Corpuscular Hgb 34.6 pg (27.0-32.0); Mean Platelet Vol. 8.7 fl (6.2-12.0); Monocyte# 0.33 X10^3/uL; Monocyte% 4.8 % (0-10); NRBC Flagged by Analyzer 0 % (0-5); Neutrophil # 4.44 X10^3/uL (2.7-7.7); Neutrophil % 65.3 % (47-70); Platelet Count 230 K/mm3 (150-450); RBC Distribution Width CV 12.6 % (11.6-14.6); RBC Distribution Width SD 47.1 fl (35.1-43.9); Red Blood Count 3.84 M/mm3 (4.2-5.4); White Blood Count 6.8 K/mm3 (4.4-11.0)
[2021-05-29 23:19] LABS: AST(SGOT) 22 U/L (15-37); Alanine Aminotransfer ALT/SGPT 26 U/L (13-56); Albumin, Serum 3.9 g/dL (3.2-5.0); Alkaline Phosphatase 86 U/L (45-117); Anion Gap 7 (5-15); BUN 10 mg/dL (7-18); BUN/Creat Ratio 11.4 RATIO (10-20); Calcium,Total 8.6 mg/dL (8.5-10.1); Chloride 107 mmol/L (98-107); Creatinine, Serum 0.88 mg/dL (0.55-1.02); EST Glomerular Filtration Rate 83 mL/min (>60); Est Glom Filt Rate - Afr Amer 101 mL/min (>60); Estimated Creatinine Clearance 81.54 ml/min; Globulin 3.8 g/dL (2.2-4.2); Glucose 119 mg/dL (74-106); Lipase 277 U/L (73-393); Potassium 3.8 mmol/L (3.5-5.1); Protein, Total 7.7 g/dL (6.4-8.2); Sodium Level 141 mmol/L (136-145)
[2021-05-29 23:22] LABS: Internal QC Validated? YES +Cl - CLEAR BKGD; Pregnancy, Serum, hCG Quali. NEGATIVE Negative
[2021-05-30 01:07] VITALS: BP 108/64; PULSE 71; RESP 18; O2SAT 99
== END 2021-05-30 01:08 | disposition home or self-care (01) ==
PROVIDERS: Emergency Provider Emergency Medicine; PCP Internal Medicine
DX: K29.70 Gastritis, unspecified, without bleeding (principal); R11.2 Nausea with vomiting, unspecified; K59.00 Constipation, unspecified; R19.7 Diarrhea, unspecified; R10.13 Epigastric pain; Z79.3 Long term (current) use of hormonal contraceptives
CPT/HCPCS: 74177; 80053; 83690; 84703; 85025; 96361; 96374; 99283; J7030; Q9967; A4216; J2405

== ENCOUNTER → 2021-07-07 12:23 | Outpatient (CLI) | payer MEDICAID, SELFPAY ==
[2021-07-07 13:09] LABS: Erythrocyte Sedimentation Rate 14 mm/hr (0-30)
[2021-07-07 13:10] LABS: Absolute Lymphocyte Count 1.61 X10^3/uL (0.83-4.51); Absolute Neutrophil Count 1.2 X10^3/uL (2.0-7.7); Basophil# 0.01 X10^3/uL; Basophil% 0.3 % (0-1); Eosinophil# 0.02 X10^3/uL; Eosinophils% 0.7 % (0-5); Hematocrit 42.3 % (37-47); Hemoglobin 14.5 g/dL (12.0-15.0); Lymphocyte # 1.61 X10^3/ul (0.83-4.51); Lymphocyte % 54.8 % (19-41); Mean Corp Hgb Conc 34.3 g/dL (32-36); Mean Corpuscular Hgb 33.8 pg (27.0-32.0); Mean Corpuscular Volume 98.6 fL (81-99); Mean Platelet Vol. 9.1 fl (6.2-12.0); Monocyte# 0.11 X10^3/uL; Monocyte% 3.7 % (0-10); NRBC Flagged by Analyzer 0 % (0-5); Neutrophil # 1.19 X10^3/uL (2.7-7.7); Neutrophil % 40.5 % (47-70); POSITIVE MORPHOLOGY YES; Platelet Count 230 K/mm3 (150-450); RBC Distribution Width SD 43.3 fl (35.1-43.9); Red Blood Count 4.29 M/mm3 (4.2-5.4); White Blood Count 2.9 K/mm3 (4.4-11.0)
[2021-07-07 13:14] LABS: International Normalized Ratio 1.1; Prothrombin Time (Protime)PT. 13.2 SECONDS (11.7-14.9)
[2021-07-07 13:18] LABS: Differential Indicated SCAN CRITERIA MET
[2021-07-07 13:38] LABS: CRP < 2.90 mg/L (0.0-3.0)
== END ==
PROVIDERS: PCP Internal Medicine; Referring Provider Internal Medicine Gastroenterology; Visit Provider Internal Medicine Gastroenterology
DX: R16.0 Hepatomegaly, not elsewhere classified (principal)
CPT/HCPCS: 36415; 82784; 83516; 85025; 85610; 85652; 86140; 86255

== ENCOUNTER 2021-07-20 09:46 | Day surgery (SDC) | payer MEDICAID, SELFPAY ==
[2021-07-20] VITALS (7 sets, daily range): BP systolic 110–141; BP diastolic 57–84; PULSE 66–72; RESP 16–20; TEMP 36.1–36.5; O2SAT 98–100; BMI 22.2
--- NOTE | 2021-07-20 | EGD_PTH ---
PATIENT: ALEA CHAUHAN LOC: EN U#:[id number] AGE/SX: 26/F ROOM: RE07/20/[address]: Dr. Bhavik Hightower DO : 1995 BED: DIS: 07/20/2021 SPEC #: [id number] RECD: 07/20/21 12:29 STATUS: FABIANA LEONID #: [id number] CALVIN: 07/20/21 00:[address]: Bhavik Hightower DEPT: SURGICAL PATHOLOGY RECD BY: Guru Rocha ENTERED: 07/20/21 12:30 SP TYPE: EGD BIOPSY CHRISTIANA DR: Dr. Jessica Jay MD Tissues: A - Duodenum, NOS B - Gastric mucous membrane C - Esophageal mucous membrane Procedures: Special Stain Group II Surgery Specimen Level IV Alcian Blue/PAS (control) HEADER OPERATION: EGD PRE-OP DIAGNOSIS: Hepatomegaly, aplastic anemia, nausea and vomiting TISSUE SUBMITTED: A ? Duodenum biopsy, B ? Antrum biopsy for H. pylori and pathology, C ? Distal esophagus biopsy MICROSCOPIC DIAGNOSIS A. Duodenum, biopsy: Fragments of duodenal mucosa, no pathologic diagnosis. B. Antrum, biopsy: Mild gastritis. See microscopic description and comment. C. Distal esophagus, biopsy: Fragments of gastric mucosa with mild chronic inflammation. Intestinal metaplasia (goblet cell metaplasia) not identified. See comment. SJ:lizzy 07/21/2021 COMMENT B. The results of immunohistochemistry for Helicobacter pylori will be reported separately ([id number]). C. Alcian blue/PAS stain with matched control is used in the evaluation of the specimen. MICROSCOPIC DESCRIPTION Slides are reviewed. B. The specimen shows fragments of gastric mucosa with chronic inflammatory cell infiltrates in the lamina propria consisting of lymphocytes and plasma cells, consistent with mild chronic gastritis. GROSS DESCRIPTION A - Received in fixative is one container labeled with the patient's name and designated duodenum biopsy. The specimen consists of multiple irregular fragments of light rodriguez soft tissue that in aggregate measure 0.4 x 0.3 x 0.1 cm. The specimen is totally submitted in one cassette. B - Received in fixative is one container labeled with the patient's name and designated antrum biopsy. The specimen consists of two irregular fragments of light rodriguez soft tissue that in aggregate measure 1 x 0.3 x 0.1 cm. The specimen is totally submitted in one cassette. C - Received in fixative is one container labeled with the patient's name and designated distal esophagus biopsy. The specimen consists of two irregular fragments of light rodriguez soft tissue that in aggregate measure 0.6 x 0.3 x 0.1 cm. The specimen is totally submitted in one cassette. / SJ:rg 07/20/21 TC:3 CPT: 92879 x3, 17209
[2021-07-20] MEDS: Lactated Ringers 1,000 ML 15 ML IV (09:55)
[2021-07-20 10:08] LABS: Internal QC Validated? YES +Cl - CLEAR BKGD; Pregnancy, Urine Negative Negative
--- NOTE | 2021-07-20 10:39 | HP.PCM_ITS ---
History and Physical Date of Admission: 07/20/21 Details: ALEA CHAUHAN, is a 25 F who presents to the office today for For the last two months she has been waking up with nausea and emesis. Feels bloated, dizzy and nauseous. ED visit a couple of times and did a CT with report of minor ulcers. Antinausea medications are not very effective. There was one that begins with an F that works the best. States that showers are what make her feel the best; will take about six showers a morning when she isn't feeling well. Denies as an option; utilizes depo shot. Admits to smoking marijuana two times every day for the last six months. ROS ENT ENT: Positive for ear or mastoid pain Gastro GI: Positive for abdominal pain, bloating, constipation, heartburn, nausea/dyspepsia and vomiting Psych Psychiatric: Positive for anxiety Lukas/Lymp Hematologic/Lymphatic: Positive for easy bruising Exam Const General: cooperative and comfortable Nutritional Appearance: average body habitus and well nourished HENMT Head: normal to inspection Ears: hearing grossly normal bilaterally Nose: external nose normal Face and sinus: normal facial exam Mouth: oral mucosae normal Throat: posterior oropharynx normal Eyes General: appearance normal, both eyes and all related structures Neck Neck: normal visual inspection Chest Chest palpation & inspection: normal inspection of the chest and normal palpation of entire chest wall Resp Effort & Inspection: normal respiratory effort Auscultation: Bilateral: Clear to Auscultation Cardio Palpation: normal PMI Rate: regular rate Rhythm: regular rhythm GI Inspection: normal to inspection Auscultation: normal bowel sounds Percussion: normal to percussion Palpation: no hepatosplenomegaly Skin General: no rashes or lesions noted Neuro General: patient alert Extrem General: normal to inspection Psych Affect: normal affect Quality Reporting Tobacco Screening ([facility] 138) Smoking Status: Never smoker Assessment and Plan Assessment and Plan (1) Hepatomegaly: Status: Acute Orders: Orders: CRP 07/07/21 Prothrombin Time w/INR 07/07/21 CBC W/Diff, Automated 07/07/21 Erythrocyte Sed Rate 07/07/21 Celiac Disease Profile 07/07/21 Plan - Dr. Gutierres Friend, DO: Her imaging of the liver does show an enlarged liver. She has no history of hypoglycemia or hyper cholesterolemia. We will check a hemoglobin A1c. We will get an ESR, CRP and a CMP. She will likely also need a elastography. (2) Aplastic anemia: Status: Acute (3) Nausea and vomiting: Status: Acute Plan - Dr. Gutierres Friend, DO: The differential diagnosis for nausea vomiting do include marijuana hyperemesis, gastroparesis, gastritis, peptic ulcer disease, celiac sprue, hypothyroidism. We will check a biochemical profile, celiac antibody profile. We will also get an upper endoscopy evaluate her upper GI tract. I will place her on promethazine has this only thing that helps her with her nausea at this time as she has failed PPI therapy and Zofran. Plan Details Other Medications: New: promethazine 25 mg PO BID 60 tabs 0RF I have re-examined the patient. There are no clinical changes since date of exam.
--- NOTE | 2021-07-20 10:45 | IMM_PTH ---
PATIENT: ALEA CHAUHAN LOC: EN U#:[id number] AGE/SX: 26/F ROOM: RE07/20/[address]: Dr. Bhavik Hightower DO : 1995 BED: DIS: 07/20/2021 SPEC #: [id number] RECD: 07/20/21 13:13 STATUS: FABIANA REMaría #: [id number] CALVIN: 07/20/21 10:[address]: Bhavik Hightower DEPT: IMMUNOHISTOCHEMISTRY RECD BY: Estrellita Patel ENTERED: 07/20/21 13:13 SP TYPE: IMMUNO OTHR DR: Dr. Jessica Jay MD Tissues: B - Stomach, NOS Procedures: H Pylori (initial) PHYSICIAN & INSTITUTION [place] [phone] SPECIMEN INFORMATION: Tissue Source: B ? Antrum biopsy Clinical Info: Hepatomegaly, aplastic anemia, nausea, vomiting Specimen Number: [id number] CPT code: 70266 METHODOLOGY: Deparaffinized sections of prefer/formalin-fixed tissue or PAP/DQ stained slides are incubated with monoclonal/polyclonal antibodies/oligonucleotide probes. Localization is made via biotin free immunoperoxidase method. Appropriate controls are performed and reacted as expected. Results on target cell population are indicated in the following table: RESULTS: ANTIBODY / CLONE RESULT Block B H Pylori (polyclonal) negative These tests were developed and their performance characteristics determined by [facility]. They may not have been cleared or approved by the U.S. Food and Drug Administration. The FDA has determined that such clearance or approval is not necessary. INTERPRETATION: B. Antrum biopsy: Negative for Helicobacter pylori organisms. SJ:lizzy 07/21/2021
--- NOTE | 2021-07-20 12:33 | OP.EGD_ITS ---
Patient Name: Claudette Rush Procedure Date: 07/20/2021 10:38 AM Date of : 1995 Age: 26 Procedure: Upper GI endoscopy Indications: Epigastric abdominal pain Providers: Bhavik Hightower DO Medicines: See the Anesthesia note for documentation of the administered medications Patient Profile: This is a 26 year old female. Refer to note in patient chart for documentation of history and physical. Patient has symptoms of acute throat burning, chronic throat burning and chronic vomiting. The symptoms first began within the past few months. Complications: No immediate complications. Procedure: Pre-Anesthesia Assessment: - Prior to the procedure, a History and Physical was performed, and patient medications and allergies were reviewed. The risks and benefits of the procedure and the sedation options and risks were discussed with the patient. All questions were answered and informed consent was obtained. Patient identification and proposed procedure were verified by the physician in the pre-procedure area. Mental Status Examination: alert and oriented. Airway Examination: normal oropharyngeal airway and neck mobility. Respiratory Examination: clear to auscultation. CV Examination: normal. Prophylactic Antibiotics: The patient does not require prophylactic antibiotics. Prior Anticoagulants: The patient has taken no previous anticoagulant or antiplatelet agents. ASA Grade Assessment: II - A patient with mild systemic disease. After reviewing the risks and benefits, the patient was deemed in satisfactory condition to undergo the procedure. The anesthesia plan was to use moderate sedation / analgesia (conscious sedation). Immediately prior to administration of medications, the patient was re-assessed for adequacy to receive sedatives. The heart rate, respiratory rate, oxygen saturations, blood pressure, adequacy of pulmonary ventilation, and response to care were monitored throughout the procedure. The physical status of the patient was re-assessed after the procedure. After obtaining informed consent, the endoscope was passed under direct vision. Throughout the procedure, the patient's blood pressure, pulse, and oxygen saturations were monitored continuously. The gastroscope was introduced through the mouth, and advanced to the second part of duodenum. The upper GI endoscopy was accomplished without difficulty. The patient tolerated the procedure well. Moderate Sedation: Moderate (conscious) sedation was administered by the endoscopy nurse and supervised by the endoscopist. The patient's oxygen saturation, heart rate, blood pressure and response to care were monitored. Total physician intraservice time was 15 minutes. Scope In: 10:55:58 AM Scope Out: 11:04:02 AM Total Procedure Duration Time 0 hours 8 minutes 4 seconds Findings: LA Grade A (one or more mucosal breaks less than 5 mm, not extending between tops of 2 mucosal folds) esophagitis with no bleeding was found 34 to 35 cm from the incisors. Biopsies were taken with a cold forceps for histology. Verification of patient identification for the specimen was done. Estimated blood loss was minimal. Localized mild inflammation characterized by congestion (edema) and erythema was found in the stomach. Biopsies were taken with a cold forceps for histology. Verification of patient identification for the specimen was done. Estimated blood loss was minimal. A single localized erosion without bleeding was found in the duodenal bulb. Biopsies were taken with a cold forceps for histology. Verification of patient identification for the specimen was done. Estimated blood loss was minimal. Impression: - LA Grade A reflux esophagitis. Biopsied. - Gastritis. Biopsied. - Duodenal erosion without bleeding. Biopsied. Recommendation: - Discharge patient to home. - Resume previous diet. - Continue present medications. - Await pathology results. - Repeat upper endoscopy in 1 year for surveillance based on pathology results. - Return to GI office in 2 weeks. Procedure Code(s): --- Professional --- 90749, Esophagogastroduodenoscopy, flexible, transoral; with biopsy, single or multiple G0500, Moderate sedation services provided by the same physician or other qualified health healthcare sales representative performing a gastrointestinal endoscopic service that sedation supports, requiring the presence of an independent trained observer to assist in the monitoring of the patient's level of consciousness and physiological status; initial 15 minutes of intra-service time; patient age 5 years or older (additional time may be reported with 99656, as appropriate) CPT copyright 2017 [employer]. All rights reserved. The codes documented in this report are preliminary and upon cone treater review may be revised to meet current compliance requirements. Bhavik Hightower DO 07/20/2021 12:33:15 PM This report has been signed electronically. Number of Addenda: 1 Note Initiated On: 07/20/2021 10:38 AM Addendum Number: 1 Addendum Date: 04/25/2022 7:00:25 AM MAC was used instead of moderate sedation for the patient. Bhavik Hightower DO 04/25/2022 7:00:30 AM This report has been signed electronically.
== END 2021-07-20 12:45 | disposition home or self-care (01) ==
LOC: EN 09:48 → AC 09:48
PROVIDERS: Anesthesiology; PCP Internal Medicine; Referring Provider Internal Medicine; Visit Provider Internal Medicine Gastroenterology
PROC: (CPT 43239; principal; 2021-07-20 10:40)
DX: K21.00 Gastro-esophageal reflux disease with esophagitis, without bleeding (principal); K26.9 Duodenal ulcer, unspecified as acute or chronic, without hemorrhage or perforation; K29.50 Unspecified chronic gastritis without bleeding; R16.0 Hepatomegaly, not elsewhere classified; D61.9 Aplastic anemia, unspecified; K21.9 Gastro-esophageal reflux disease without esophagitis; Z20.822 Contact with and (suspected) exposure to COVID-19; F32.A Depression, unspecified; F41.9 Anxiety disorder, unspecified; Z79.899 Other long term (current) drug therapy; Z87.11 Personal history of peptic ulcer disease
CPT/HCPCS: 43239; 81025; 87426; 88305; 88313; 88342; C9803; J7120; J2405

== ENCOUNTER 2021-11-30 15:12 | Emergency (ER) | payer MEDICAID, SELFPAY ==
[2021-11-30 15:13] VITALS: BP 116/90; PULSE 82; RESP 16; TEMP 36.6; O2SAT 98; BMI 21.2
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
[2021-11-30] MEDS: Naproxen 500 MG Tablet PO (15:26)
[2021-11-30] MEDS: HYDROcodone Bitartrate/Apap 5/325 Tablet PO (15:26)
[2021-11-30] MEDS: Diphth,Pertuss(Acell),Tet Vac 0.5 ML Vial IM (15:31)
--- NOTE | 2021-11-30 15:35 | RAD_ITS ---
STUDY: X-RAY - RIGHT HAND REASON FOR EXAM: Female, 26 years old. Injury/Pain TECHNIQUE: 3 view(s) of the hand. COMPARISON: None. FINDINGS: Normal radiocarpal articulation. Normal distal radioulnar joint. Normal visualized carpal bones. Normal carpal articulations Normal carpometacarpal articulation of the thumb. Normal second through fifth carpometacarpal joints. Normal metacarpi. Normal metacarpophalangeal joint of the thumb. Normal interphalangeal joint of the thumb. Normal proximal and distal phalanges of the thumb. Normal metacarpophalangeal joints of the second through fifth fingers. Normal proximal and distal interphalangeal joints of the second through fifth fingers. Normal phalanges of the second through fifth fingers. The soft tissue structures are unremarkable. RAD/Hand Min 3 Views IMPRESSION: Normal x-ray examination of the hand. Electronically Signed: Kristian Del Toro DO at 16:53 EDT Reading Location ID and State: [facility] / [place] Tel [phone], Service support ,
[2021-11-30 16:05] VITALS: BP 122/74; PULSE 74; RESP 18; O2SAT 95
== END 2021-11-30 16:06 | disposition home or self-care (01) ==
PROVIDERS: Emergency Provider Emergency Medicine; PCP Internal Medicine; Visit Provider Emergency Medicine
DX: S66.911A Strain of unspecified muscle, fascia and tendon at wrist and hand level, right hand, initial encounter (principal); T23.261A Burn of second degree of back of right hand, initial encounter; T23.211A Burn of second degree of right thumb (nail), initial encounter; V89.2XXA Person injured in unspecified motor-vehicle accident, traffic, initial encounter; W22.10XA Striking against or struck by unspecified automobile airbag, initial encounter; K21.9 Gastro-esophageal reflux disease without esophagitis; F32.A Depression, unspecified; F41.9 Anxiety disorder, unspecified; Z79.899 Other long term (current) drug therapy; Z87.891 Personal history of nicotine dependence; Z23 Encounter for immunization
CPT/HCPCS: 73130; 90471; 90715; 99283

== ENCOUNTER 2022-05-22 08:16 | Emergency (ER) | payer MEDICAID, SELFPAY ==
[2022-05-22 08:17] VITALS: BP 108/47; PULSE 63; RESP 16; TEMP 35.9; O2SAT 99; BMI 20.9
--- NOTE | 2022-05-22 08:44 | EDS_ITS ---
HPI History of Present Illness Chief Complaint: Nausea/Vomiting/Diarrhea Informant: patient and parent Narrative Narrative: Presents nausea vomiting x3 this morning. Mild speck of blood. Abdominal cramping. On and off symptoms for the past year awakening with nausea and vomiting symptoms. She is seeing Dr. Hightower last seen 2 months ago upper endoscopy with biopsies reported negative. She is currently on Prilosec. She states been helping her up to a month ago returning symptoms. She is able to eat dinner around 5 PM with no symptoms. Awakening with the symptoms has been more intermittent. On and off constipation with bowel movements. Family histor y of irritable bowel. Denies family history of Crohn's disease or ulcerative colitis. No colonoscopies in the past. Last menstrual period 4 years ago however on the Depo shot. No urinary symptoms. Currently nauseated. History of aplastic anemia with family history of her father who with this. She is seen hematology at [facility] bone marrow biopsies she has white count typically around 3 and slight anemia platelets always been normal. She gets yearly blood checks through her physicians. Prior similar symptoms: Yes PFSH PFS Medical History Alcohol use Anxiety Depression Easy bruising Gastric reflux GERD (gastroesophageal reflux disease) Hepatomegaly History of epidural anesthesia History of miscarriage History of peptic ulcer Marijuana use Nausea and vomiting Non-smoker Vitamin B12 deficiency Wears glasses Home Medications medroxyprogesterone 150 mg/mL intramuscular suspension 150 mg IM QMONTH bc 05/18/21 [History Last Taken Unknown] pantoprazole 40 mg tablet,delayed release See Rx Instructions .Route .COMPLEX #60 tabs 10/30/21 [Rx Last Taken Unknown] ondansetron 4 mg disintegrating tablet 4 mg PO Q6H PRN nausea and vomiting #10 tabs 05/22/22 [Rx Last Taken Unknown] Allergy/AdvReac Type Severity Reaction Status Date / Time No Known Allergies Allergy Verified 05/22/22 08:17 Family History Grandmother Breast cancer Grandfather Hypertension Mother Thyroid disorder Other Cancer Surgical History History of bone marrow biopsy Social History household members: significant other and children Smoking Status: Former smoker substance use type: does not use ROS ROS ED Constitutional Constitutional ED: Denies chills, fever(s) or sweats Eyes Eyes: Denies change in vision ENT ENT ED: Denies dysphagia or sore throat Cardiovascular Cardiovascular: Denies chest pain, leg edema, palpitations or racing heartbeat Respiratory/Chest Respiratory/Chest: Denies cough, dyspnea or dyspnea on exertion Gastrointestinal Gastrointestinal: Reports nausea and vomiting; Denies abdominal pain or diarrhea Genitourinary Genitourinary ED: Denies dysuria, hematuria or urinary frequency Musculoskeletal Musculoskeletal: Denies back pain, extremity pain or neck pain Integumentary Denies rash or wounds Neurologic Neurologic: Denies headache(s), paresthesias or weakness EXAM Physical Exam Const Vital Signs: 05/22/22 08:17 05/22/22 10:28 05/22/22 10:53 Temperature 96.6 F L Temperature Source Temporal Pulse Rate 63 71 71 Respiratory Rate 16 15 15 Blood Pressure 108/47 L 134/67 H 124/69 H Blood Pressure Mean 67 89 Pulse Ox 99 98 98 Oxygen Delivery Method Room Air Room Air Positive well nourished and well developed General Appearance ED: well developed and NAD HEENT Reports dry mucous membranes normocephalic and atraumatic Mouth ED: Yes dry mucous membranes Mouth: dry mucous membranes Eyes PERRL, EOMs intact bilaterally and conjunctivae normal General Eye ED: Yes normal appearance of both eyes Neck no lymphadenopathy and supple General: Negative for tenderness Chest Wall Chest: Negative for tenderness Resp normal respiratory effort and normal air movement Effort and Inspection: symmetric chest movement; Negative for respiratory distress Cardio regular rate, regular rhythm and no murmurs Peripheral Pulses: pulses 2+ throughout GI normal to inspection, nondistended, normoactive bowel sounds and non-tender GI Narrative: Negative Carrero's or McBurney's tenderness. Palpation: Negative for guarding or rebound tenderness present Back/Spine no CVA tenderness and no thoracic nor lumbar tenderness Extremity normal to inspection General Extremety ED: Negative for edema or tenderness General Extremity: Negative for edema Neuro oriented x3 and no sensory deficits noted Sensorium / Orientation: awake and alert Skin no rashes or lesions noted and no wounds MDM MDM MDM Narrative Medical decision making narrative: Patient nonsurgical abdomen. Recurrent abdominal complaints with history of aplastic anemia. I checked abdominal labs all normal normal white count hemoglobin platelets today. Given Zofran And Protonix for gastritis symptoms no active bleeding. 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 She has been using this for the past year she has been symptomatic with vomiting pneumonia for the past year. Discussed could be THC introduced. She will try to cut back and stop this. She states she is using it to help with appetite. She will follow-up with GI for discussion of her irritable bowel symptoms. Prescription for Zofran to use as needed. All questions were answered. Lab Data Attestation: I reviewed the patient's lab results. Labs: Laboratory Results - last 24 hr 05/22/22 05/22/22 05/22/22 08:55 08:55 08:55 WBC Cancelled Corrected WBC Cancelled RBC Cancelled Hgb Cancelled Hct Cancelled MCV Cancelled MCH Cancelled MCHC Cancelled RDW Std Deviation Cancelled RDW Coeff of Raven Cancelled Plt Count Cancelled MPV Cancelled Immature Gran % (Auto) Cancelled Neut % (Auto) Cancelled Lymph % (Auto) Cancelled Blair % (Auto) Cancelled Eos % (Auto) Cancelled Baso % (Auto) Cancelled Absolute Neuts (auto) Cancelled Absolute Lymphs (auto) Cancelled Total Counted Cancelled Neutrophils % (Manual) Cancelled Band Neutrophils % Cancelled Lymphocytes % (Manual) Cancelled Monocytes % (Manual) Cancelled Eosinophils % (Manual) Cancelled Basophils % (Manual) Cancelled Metamyelocytes % Cancelled Myelocytes % Cancelled Promyelocytes % Cancelled Blast Cells % Cancelled Plasma Cell % (Manual) Cancelled Other Cells % Cancelled Nucleated RBC % Cancelled Nucleated RBCs/100 WBC Cancelled Differential Comment Cancelled Diff Path Review Cancelled Hypersegmented Neuts Cancelled Atypical Lymphocytes Cancelled Reactive Lymphocytes Cancelled Smudge Cells Cancelled Toxic Granulation Cancelled Toxic Vacuolation Cancelled Dohle Bodies Cancelled Damir Rods Cancelled Platelet Estimate Cancelled Plt Morphology Comment Cancelled RBC Morphology Cancelled Polychromasia Cancelled Hypochromasia Cancelled Poikilocytosis Cancelled Basophilic Stippling Cancelled Anisocytosis Cancelled Microcytosis Cancelled Macrocytosis Cancelled Spherocytes Cancelled Sickle Cells Cancelled Target Cells Cancelled Tear Drop Cells Cancelled Ovalocytes Cancelled Stomatocytes Cancelled [place] Bodies Cancelled Bernardo Cells Cancelled Bite Cells Cancelled Crenated Cell Cancelled Acanthocytes (Spur) Cancelled Rouleaux Cancelled Schistocytes Cancelled Sodium 141 Potassium 4.3 Chloride 110 H Carbon Dioxide 27.0 Anion Gap 4 L BUN 7 Creatinine 0.78 Estim Creat Clear Calc 91.21 Est GFR (MDRD) Af Amer 116 Est GFR (MDRD) Non-Af 96 BUN/Creatinine Ratio 9.0 L Glucose 100 Calcium 9.5 Total Bilirubin 0.60 AST 25 ALT 19 Alkaline Phosphatase 81 Total Protein 8.7 H Albumin 4.3 Globulin 4.4 H Albumin/Globulin Ratio 1.0 Lipase 87 Serum , Qual NEGATIVE 05/22/22 10:00 WBC 4.2 L Corrected WBC RBC 3.98 L Hgb 13.4 Hct 39.1 MCV 98.2 MCH 33.7 H MCHC 34.3 RDW Std Deviation 44.7 H RDW Coeff of Raven 12.3 Plt Count 207 MPV 8.9 Immature Gran % (Auto) 0.200 Neut % (Auto) 62.0 Lymph % (Auto) 33.5 Blair % (Auto) 3.6 Eos % (Auto) 0.5 Baso % (Auto) 0.2 Absolute Neuts (auto) 2.6 Absolute Lymphs (auto) 1.39 Total Counted Neutrophils % (Manual) Band Neutrophils % Lymphocytes % (Manual) Monocytes % (Manual) Eosinophils % (Manual) Basophils % (Manual) Metamyelocytes % Myelocytes % Promyelocytes % Blast Cells % Plasma Cell % (Manual) Other Cells % Nucleated RBC % 0 Nucleated RBCs/100 WBC Differential Comment Diff Path Review Hypersegmented Neuts Atypical Lymphocytes Reactive Lymphocytes Smudge Cells Toxic Granulation Toxic Vacuolation Dohle Bodies Damir Rods Platelet Estimate Plt Morphology Comment RBC Morphology Polychromasia Hypochromasia Poikilocytosis Basophilic Stippling Anisocytosis Microcytosis Macrocytosis Spherocytes Sickle Cells Target Cells Tear Drop Cells Ovalocytes Stomatocytes [place] Bodies Bernardo Cells Bite Cells Crenated Cell Acanthocytes (Spur) Rouleaux Schistocytes Sodium Potassium Chloride Carbon Dioxide Anion Gap BUN Creatinine Estim Creat Clear Calc Est GFR (MDRD) Af Amer Est GFR (MDRD) Non-Af BUN/Creatinine Ratio Glucose Calcium Total Bilirubin AST ALT Alkaline Phosphatase Total Protein Albumin Globulin Albumin/Globulin Ratio Lipase Serum , Qual Discharge Plan Triage Chief Complaint: Nausea/Vomiting/Diarrhea ED Provider: Brett Catalan Dx/Rx/DC Orders Clinical Impression: Nausea & vomiting, History of aplastic anemia, Gastritis, Tetrahydrocannabinol (THC) use disorder, mild, abuse Instructions: ED Gastritis (Adult), ED Marijuana Abuse, ED Vomiting (Adult) Prescriptions: New ondansetron 4 mg tablet,disintegrating 4 mg PO Q6H PRN (Reason: nausea and vomiting) Qty: 10 0RF No Action medroxyprogesterone 150 mg/mL suspension 150 mg IM QMONTH Rx Instructions: every 3 months pantoprazole 40 mg tablet,delayed release (DR/EC) See Rx Instructions .ROUTE .COMPLEX Qty: 60 2RF Dose Instruction: take 1 tablet by mouth twice a day for 8 WEEKS then once daily for 8 WEEKS then STOP Rx Instructions: take 1 tablet by mouth twice a day for 8 WEEKS then once daily for 8 WEEKS then STOP Primary Care Provider: Jessica Jay Referrals: Jessica Jay MD [Primary Care Provider] - Bhavik Hightower DO [Med Staff - Active Staff] - 1-2 Weeks Activity Restrictions/Additional Instructions: Your labs are normal. Try to stop or sniffily cut back on the marijuana your symptoms may improve. Continue your omeprazole. Zofran as needed. Follow-up with Dr. Hightower discussed your irritable bowel symptoms for further outpatient work-up. Disposition Disposition: Home, Self Care Discharge Date/Time: 05/22/22 10:54
[2022-05-22] MEDS: Ondansetron 4 MG/2 ML Vial IV (09:09)
[2022-05-22] MEDS: 0.9% Normal Saline 1,000 ML 1000 ML IV (09:09)
[2022-05-22 09:18] LABS: Internal QC Validated? YES +Cl - CLEAR BKGD; Pregnancy, Serum, hCG Quali. NEGATIVE Negative
[2022-05-22 09:43] LABS: AST(SGOT) 25 U/L (15-37); Alanine Aminotransfer ALT/SGPT 19 U/L (13-56); Albumin, Serum 4.3 g/dL (3.2-5.0); Alkaline Phosphatase 81 U/L (45-117); Anion Gap 4 (5-15); BUN 7 mg/dL (7-18); Calcium,Total 9.5 mg/dL (8.5-10.1); Chloride 110 mmol/L (98-107); Creatinine, Serum 0.78 mg/dL (0.55-1.02); EST Glomerular Filtration Rate 96 mL/min (>60); Est Glom Filt Rate - Afr Amer 116 mL/min (>60); Estimated Creatinine Clearance 91.21 ml/min; Globulin 4.4 g/dL (2.2-4.2); Glucose 100 mg/dL (74-106); Lipase 87 U/L (73-393); Potassium 4.3 mmol/L (3.5-5.1); Protein, Total 8.7 g/dL (6.4-8.2); Sodium Level 141 mmol/L (136-145)
[2022-05-22 10:06] LABS: Absolute Lymphocyte Count 1.39 X10^3/uL (0.83-4.51); Absolute Neutrophil Count 2.6 X10^3/uL (2.0-7.7); Basophil# 0.01 X10^3/uL; Basophil% 0.2 % (0-1); Eosinophil# 0.02 X10^3/uL; Eosinophils% 0.5 % (0-5); Hematocrit 39.1 % (37-47); Hemoglobin 13.4 g/dL (12.0-15.0); Lymphocyte # 1.39 X10^3/ul (0.83-4.51); Lymphocyte % 33.5 % (19-41); Mean Corp Hgb Conc 34.3 g/dL (32-36); Mean Corpuscular Hgb 33.7 pg (27.0-32.0); Mean Corpuscular Volume 98.2 fL (81-99); Mean Platelet Vol. 8.9 fl (6.2-12.0); Monocyte# 0.15 X10^3/uL; Monocyte% 3.6 % (0-10); NRBC Flagged by Analyzer 0 % (0-5); Neutrophil # 2.57 X10^3/uL (2.7-7.7); Platelet Count 207 K/mm3 (150-450); RBC Distribution Width CV 12.3 % (11.6-14.6); RBC Distribution Width SD 44.7 fl (35.1-43.9); Red Blood Count 3.98 M/mm3 (4.2-5.4); White Blood Count 4.2 K/mm3 (4.4-11.0)
[2022-05-22 10:28] VITALS: BP 134/67; PULSE 71; RESP 15; O2SAT 98
[2022-05-22 10:53] VITALS: BP 124/69; PULSE 71; RESP 15; O2SAT 98
== END 2022-05-22 10:54 | disposition home or self-care (01) ==
PROVIDERS: Emergency Provider Emergency Medicine; PCP Internal Medicine; Visit Provider Emergency Medicine
DX: K29.70 Gastritis, unspecified, without bleeding (principal); F12.188 Cannabis abuse with other cannabis-induced disorder; R11.2 Nausea with vomiting, unspecified; Z87.891 Personal history of nicotine dependence; K58.0 Irritable bowel syndrome with diarrhea; R19.7 Diarrhea, unspecified; Z86.2 Personal history of diseases of the blood and blood-forming organs and certain disorders involving the immune mechanism; K21.9 Gastro-esophageal reflux disease without esophagitis; Z79.899 Other long term (current) drug therapy
CPT/HCPCS: 80053; 83690; 84703; 85025; 96365; 96375; 99283; J7030; A4216; J2405

== ENCOUNTER 2023-03-27 09:34 | Emergency (ER) | payer MEDICAID, SELFPAY ==
[2023-03-27 09:35] VITALS: BP 124/90; PULSE 70; RESP 14; TEMP 36.3; O2SAT 97; BMI 21.7
[2023-03-27] MEDS: Mag Hydrox/Al Hydrox/Simeth 30 ML UDC PO (10:14)
[2023-03-27 10:26] LABS: Mucous, Urine 0 SEEN /hpf (<or=2+); Red Blood Cells-Urine 0 SEEN /hpf (0-5)
[2023-03-27 10:30] LABS: Glucose, Dipstick Normal (Normal); Ketone-Dipstick 150 mg/dl (Negative); Leukocyte Esterase-Dipstick 500 /ul (Negative); Nitrite-Dipstick Negative (Negative); Occult Blood-Urine 25 /ul (Negative); Protein-Dipstick 15 mg/dl (Negative); Specific Gravity, Urine 1.015 (1.002-1.030); Urine Bilirubin Dipstick Negative (Negative); Urine Clarity Clear (Clear); Urine Urobilinogen Normal (Normal)
[2023-03-27 10:32] LABS: Color, Urine Yellow (Yellow)
[2023-03-27 10:37] LABS: Bacteria 1+ /hpf (None Seen); Squamous Epithelial Cells - UA 0-5 SEEN /hpf (5-10); White Blood Cells 5-10 SEEN /hpf (0-5)
[2023-03-27 10:38] LABS: Internal QC Validated? YES +Cl - CLEAR BKGD; Pregnancy, Urine Negative Negative
[2023-03-27] MEDS: 0.9% Normal Saline 1,000 ML 1000 ML IV (10:56)
[2023-03-27 11:00] LABS: Absolute Lymphocyte Count 1.19 X10^3/uL (0.83-4.51); Absolute Neutrophil Count 2.6 X10^3/uL (2.0-7.7); Basophil# 0.02 X10^3/uL; Basophil% 0.5 % (0-1); Eosinophil# 0.01 X10^3/uL; Eosinophils% 0.3 % (0-5); Hematocrit 38.8 % (37-47); Hemoglobin 13.5 g/dL (12.0-15.0); Lymphocyte # 1.19 X10^3/ul (0.83-4.51); Lymphocyte % 29.8 % (19-41); Mean Corp Hgb Conc 34.8 g/dL (32-36); Mean Corpuscular Hgb 34.5 pg (27.0-32.0); Mean Corpuscular Volume 99.2 fL (81-99); Mean Platelet Vol. 8.5 fl (6.2-12.0); Monocyte# 0.15 X10^3/uL; Monocyte% 3.8 % (0-10); NRBC Flagged by Analyzer 0 % (0-5); Neutrophil # 2.63 X10^3/uL (2.7-7.7); Neutrophil % 65.6 % (47-70); Platelet Count 204 K/mm3 (150-450); RBC Distribution Width CV 11.9 % (11.6-14.6); RBC Distribution Width SD 43.8 fl (35.1-43.9); Red Blood Count 3.91 M/mm3 (4.2-5.4)
[2023-03-27 11:17] LABS: ALB/GLOB Ratio 0.9 RATIO (0.9-2.4); AST(SGOT) 21 U/L (15-37); Alanine Aminotransfer ALT/SGPT 29 U/L (13-56); Albumin, Serum 3.6 g/dL (3.2-5.0); Alkaline Phosphatase 68 U/L (45-117); Anion Gap 7 (5-15); BUN 7 mg/dL (7-18); BUN/Creat Ratio 9.6 RATIO (10-20); Calcium,Total 8.8 mg/dL (8.5-10.1); Chloride 106 mmol/L (98-107); Creatinine, Serum 0.73 mg/dL (0.55-1.02); EST Glomerular Filtration Rate 102 mL/min (>60); Est Glom Filt Rate - Afr Amer 123 mL/min (>60); Estimated Creatinine Clearance 96.61 ml/min; Globulin 4.1 g/dL (2.2-4.2); Glucose 94 mg/dL (74-106); Lipase 18 U/L (13-75); Potassium 3.9 mmol/L (3.5-5.1); Protein, Total 7.7 g/dL (6.4-8.2); Sodium Level 140 mmol/L (136-145)
--- NOTE | 2023-03-27 11:50 | EX.ED.DYSGE1 ---
HPI History of Present Illness Chief Complaint: Nausea/Vomiting Narrative Narrative: Patient presents with epigastric pain. She has had epigastric pain for the past few months, she has had nausea especially in the morning and burning sensation. She had a endoscopy which showed significant inflammation and GERD. She was placed on PPI but she ran out of it. She is denying . She has no fevers or chills. She has very slight dysuria. No hematuria no urgency or frequency. PFSH PFS Medical History Alcohol use Anxiety Depression Easy bruising Gastric reflux GERD (gastroesophageal reflux disease) Hepatomegaly History of epidural anesthesia History of miscarriage History of peptic ulcer Marijuana use Nausea and vomiting Non-smoker Vitamin B12 deficiency Wears glasses Home Medications medroxyprogesterone 150 mg/mL intramuscular suspension 150 mg IM QMONTH bc 05/18/21 [History Last Taken Unknown] pantoprazole 40 mg tablet,delayed release See Rx Instructions .Route .COMPLEX #60 tabs 10/30/21 [Rx Last Taken Unknown] ondansetron 4 mg disintegrating tablet 4 mg PO Q6H PRN nausea and vomiting #10 tabs 05/22/22 [Rx Last Taken Unknown] omeprazole 40 mg capsule,delayed release 40 mg PO DAILY #60 caps 03/27/23 [Rx Last Taken Unknown] ondansetron 4 mg disintegrating tablet 4 mg PO Q8H PRN PRN Nausea #20 tabs 03/27/23 [Rx Last Taken Unknown] Allergy/AdvReac Type Severity Reaction Status Date / Time No Known Allergies Allergy Verified 03/27/23 09:36 Family History Grandmother Breast cancer Grandfather Hypertension Mother Thyroid disorder Other Cancer Surgical History History of bone marrow biopsy Social History household members: significant other and children Smoking Status: Former smoker substance use type: does not use ROS ROS ED ROS Narrative Past medical history: Reviewed Medications: Reviewed Social history: Noncontributory Review of systems: All systems negative except as indicated General: No fever Eyes: No visual changes ENT: No upper airway congestion, normal voice Neck: No neck pain Cardiovascular: No chest pain Respiratory: No shortness of breath or cough Gastrointestinal: As in HPI Genitourinary: As in HPI Musculoskeletal: Denies myalgias no difficulty with ambulation Skin: No rash Neurological: No memory loss, confusion or any focal weakness Psych: No recent behavioral changes Hematologic: No easy bleeding or easy bruising EXAM Physical Exam Narrative Exam Narrative: Physical exam General: Well nourished, Well developed, No Acute Distress Head: Normocephalic, Atraumatic Eyes: Conjunctiva not pale ENT: Moist mucous membranes Neck: Supple, Nontender, No lymphadenopathy Cardiovascular: Regular rate, Regular rhythm Respiratory: No distress, CTA bilaterally Abdomen: Soft, minimal epigastric tenderness. Back: Nontender, Normal Inspection. Negative for: CVA tenderness Extremities: Nontender, No edema Skin: Normal color, No rash Neurological: Alert, Normal Strength, Normal Sensation Psychological: Normal affect Const Vital Signs: 03/27/23 09:35 Temperature 97.3 F L Temperature Source Temporal Pulse Rate 70 Respiratory Rate 14 Blood Pressure 124/90 H Blood Pressure Mean 101 Pulse Ox 97 Oxygen Delivery Method Room Air MDM MDM MDM Narrative Medical decision making narrative: Patient is found to be significantly dehydrated with quite a few ketones which is likely the reason for her dysuria since she does not have a UTI. CBC CMP and lipase are negative no evidence of pancreatitis, I am not suspicious of gallbladder disease. I am not suspicious of any other infection or intra-abdominal catastrophe. At this time she does not meet criteria for CT of the abdomen. She is given a GI cocktail and IV fluids with significant improvement of her symptoms. I will place her on a PPI for likely gastritis or GERD and she can follow-up with GI again. If anything changes she is to return Lab Data Labs: Laboratory Results - last 24 hr 03/27/23 03/27/23 10:20 10:50 WBC 4.0 L RBC 3.91 L Hgb 13.5 Hct 38.8 MCV 99.2 H MCH 34.5 H MCHC 34.8 RDW Std Deviation 43.8 RDW Coeff of [place] 11.9 Plt Count 204 MPV 8.5 Immature Gran % (Auto) 0.000 Neut % (Auto) 65.6 Lymph % (Auto) 29.8 [place] % (Auto) 3.8 Eos % (Auto) 0.3 Baso % (Auto) 0.5 Absolute Neuts (auto) 2.6 Absolute Lymphs (auto) 1.19 Nucleated RBC % 0 Sodium 140 Potassium 3.9 Chloride 106 Carbon Dioxide 27.0 Anion Gap 7 BUN 7 Creatinine 0.73 Estim Creat Clear Calc 96.61 Est GFR (MDRD) Af Amer 123 Est GFR (MDRD) Non-Af 102 BUN/Creatinine Ratio 9.6 L Glucose 94 Calcium 8.8 Total Bilirubin 0.60 AST 21 ALT 29 Alkaline Phosphatase 68 Total Protein 7.7 Albumin 3.6 Globulin 4.1 Albumin/Globulin Ratio 0.9 Lipase 18 Urine Color Yellow Urine Clarity Clear Urine pH 6.0 Ur Specific [place] 1.015 Urine Protein 15 H Urine Glucose (UA) Normal Urine Ketones 150 A* Urine Occult Blood 25 H Urine Nitrite Negative Urine Bilirubin Negative Urine Urobilinogen Normal Ur Leukocyte Esterase 500 H Urine RBC 0 SEEN Urine WBC 5-10 SEEN Ur Squamous Epith Cells 0-5 SEEN Urine Bacteria 1+ Urine Mucus 0 SEEN Urine Test Negative Discharge Plan Triage Chief Complaint: Nausea/Vomiting ED Provider: Wilfrido Jones Dx/Rx/DC Orders Clinical Impression: Acute dehydration, Ketonuria, Gastritis Instructions: Dehydration, ED Gastritis (Adult) Prescriptions: New omeprazole 40 mg capsule,delayed release(DR/EC) 40 mg PO DAILY Qty: 60 0RF ondansetron 4 mg tablet,disintegrating 4 mg PO Q8H PRN PRN (Reason: Nausea) Qty: 20 0RF No Action medroxyprogesterone 150 mg/mL suspension 150 mg IM QMONTH Rx Instructions: every 3 months ondansetron 4 mg tablet,disintegrating 4 mg PO Q6H PRN (Reason: nausea and vomiting) Qty: 10 0RF pantoprazole 40 mg tablet,delayed release (DR/EC) See Rx Instructions .ROUTE .COMPLEX Qty: 60 2RF Dose Instruction: take 1 tablet by mouth twice a day for 8 WEEKS then once daily for 8 WEEKS then STOP Rx Instructions: take 1 tablet by mouth twice a day for 8 WEEKS then once daily for 8 WEEKS then STOP Primary Care Provider: Jessica Jay Referrals: Jessica Jay MD [Primary Care Provider] - Bhavik Hightower DO [Med Staff - Active Staff] - Disposition Disposition: Home, Self Care
[2023-03-27 12:05] VITALS: BP 118/76; PULSE 62; RESP 15; O2SAT 98
== END 2023-03-27 12:06 | disposition home or self-care (01) ==
PROVIDERS: Emergency Provider Emergency Medicine; PCP Internal Medicine; Visit Provider Emergency Medicine
DX: E86.0 Dehydration (principal); R82.4 Acetonuria; K21.9 Gastro-esophageal reflux disease without esophagitis; Z79.899 Other long term (current) drug therapy; Z87.891 Personal history of nicotine dependence; K29.70 Gastritis, unspecified, without bleeding
CPT/HCPCS: 80053; 81001; 81025; 83690; 85025; 96360; 99284; J7030; A4216

== ENCOUNTER 2023-06-22 09:32 | Emergency (ER) | payer MEDICAID, SELFPAY ==
[2023-06-22 09:32] VITALS: BP 108/68; PULSE 74; RESP 16; TEMP 36.4; O2SAT 99; BMI 20.5
--- NOTE | 2023-06-22 10:02 | EX.ED.DYSGE1 ---
HPI History of Present Illness Chief Complaint: Abd Pain Informant: patient Narrative Narrative: Patient presents with chronic upper abdominal pain with vomiting worse in the mornings. Patient states symptoms been ongoing for 2 years. She had an EGD performed [address] Hightower that revealed gastritis, duodenal erosion, and reflux esophagitis. She states her primary care physician currently has her on Carafate and pantoprazole. She has an appointment to see Dr. Hightower again but not until September. Patient states that she recently got a new job and does not want this interfering with her new employment. She is concerned that there may be more testing that should be done as she continues to have symptoms. [facility] Medical History Alcohol use Anxiety Depression Easy bruising Gastric reflux GERD (gastroesophageal reflux disease) Hepatomegaly History of epidural anesthesia History of miscarriage History of peptic ulcer Marijuana use Nausea and vomiting Non-smoker Vitamin B12 deficiency Wears glasses Home Medications omeprazole 40 mg capsule,delayed release 40 mg PO DAILY #60 caps 03/27/23 [Rx Last Taken Unknown] pantoprazole 40 mg tablet,delayed release 40 mg PO DAILY 06/22/23 [History Last Taken Unknown] potassium chloride 20 mEq tablet,extended release 20 meq PO BID #10 tabs 06/22/23 [Rx Last Taken Unknown] prochlorperazine maleate 10 mg tablet (Compazine) 10 mg PO BID PRN nausea and vomiting #30 tabs 06/22/23 [Rx Last Taken Unknown] sucralfate 1 gram tablet 1 g PO Q6H 06/22/23 [History Last Taken Unknown] Allergy/AdvReac Type Severity Reaction Status Date / Time No Known Allergies Allergy Verified 06/22/23 09:32 Family History Grandmother Breast cancer Grandfather Hypertension Mother Thyroid disorder Other Cancer Surgical History History of bone marrow biopsy Social History household members: significant other and children Smoking Status: Former smoker substance use type: does not use ROS ROS ED Constitutional Constitutional ED: Denies chills or fever(s) Eyes Eyes: Denies discharge from eye(s) ENT ENT ED: Denies discharge from eye(s), rhinorrhea or sore throat Cardiovascular Cardiovascular: Denies chest pain or palpitations Respiratory/Chest Respiratory/Chest: Denies cough or dyspnea Gastrointestinal Gastrointestinal: Reports abdominal pain, nausea and vomiting; Denies diarrhea Genitourinary Genitourinary ED: Denies dysuria Musculoskeletal Musculoskeletal: Denies back pain or extremity pain Integumentary Denies Abrasions or rash Neurologic Neurologic: Denies headache(s) or weakness Psychiatric Psychiatric: Denies anxiety or depression Allergic/Immunologic Allergic/Immunologic ED: Denies lip swelling or urticaria EXAM Physical Exam Const Vital Signs: 06/22/23 09:32 Temperature 97.6 F L Temperature Source Temporal Pulse Rate 74 Respiratory Rate 16 Blood Pressure 108/68 Blood Pressure Mean 81 Pulse Ox 99 Oxygen Delivery Method Room Air Positive well nourished and well developed General Appearance ED: well developed HEENT Reports moist mucous membranes Eyes EOMs intact bilaterally Chest Wall inspection of chest normal and palpation of chest normal Resp normal respiratory effort and clear to auscultation bilaterally Cardio regular rate and regular rhythm GI GI Narrative: Abdomen soft with no focal tenderness. Hypoactive bowel sounds. Extremity normal to inspection Neuro oriented x3 and no sensory deficits noted Motor Exam: strength 5/5 throughout Psych Mood & Affect: anxious Skin no rashes or lesions noted MDM MDM MDM Narrative Medical decision making narrative: Patient is concerned that she may need a CT scan or an ultrasound to look at her stomach. I advised her that this would not show the lining of her stomach where she has had problems previously. She would need another EGD for that study. I do not want to subject her to radiation if its not necessary. She does admit to still using marijuana and has her medical marijuana card. She states even if she stops using it for a week or so at a time she will continue to have nausea and vomiting. IV line established. Labwork obtained to evaluate for leukocytosis, anemia, and electrolyte derangement. Abdominal x-ray obtained to evaluate bowel gas pattern. History & Record Review Discussion w/independent historian: Patient Additional record(s) reviewed:: Prior outpatient record and Prior labs Lab Data Attestation: I reviewed the patient's lab results. Labs: Laboratory Results - last 24 hr 06/22/23 10:20 WBC 4.9 RBC 4.10 L Hgb 14.0 Hct 39.8 MCV 97.1 MCH 34.1 H MCHC 35.2 RDW Std Deviation 42.6 RDW Coeff of [place] 11.9 Plt Count 195 MPV 8.9 Immature Gran % (Auto) 0.200 Neut % (Auto) 70.1 H Lymph % (Auto) 24.6 [place] % (Auto) 4.3 Eos % (Auto) 0.4 Baso % (Auto) 0.4 Absolute Neuts (auto) 3.4 Absolute Lymphs (auto) 1.20 Nucleated RBC % 0 Sodium 144 Potassium 2.7 L* Chloride 115 H Carbon Dioxide 22.0 Anion Gap 7 BUN 8 Creatinine 0.52 L Estim Creat Clear Calc 135.62 Est GFR (MDRD) Af Amer 181 Est GFR (MDRD) Non-Af 150 BUN/Creatinine Ratio 15.3 Glucose 79 Calcium 7.0 L Total Bilirubin 0.60 Direct Bilirubin 0.23 AST 12 L ALT 13 Alkaline Phosphatase 54 Total Protein 6.4 Albumin 3.3 Globulin 3.1 Lipase 13 Serum , Qual NEGATIVE Radiography Diagnostic Testing: Clinical Impression(s) from Imaging Studies KUB X-Ray 06/22/23 10:05 IMPRESSION: Nonspecific gas pattern as described above. Electronically Signed: Kashif Lester MD at 10:53 EDT , Treatment and Re-Evaluation :: CBC was normal white count 4.9 with a hemoglobin of 14. Differential unremarkable. Chemistry studies significant for potassium level of 2.7. Renal function is normal. LFTs and lipase normal. test is negative. Patient was given IV fluids here. Abdominal x-ray per my interpretation reveals nonspecific bowel gas pattern. Radiology interpretation reviewed and agrees. Patient was given oral potassium here along with a dose of Compazine. She tolerated this without difficulty. I will write her additional potassium replacement as well as Compazine to help with her nausea as she has done well with this in the past at bedtime. She will follow-up with Dr. Hightower as scheduled and return instructions are provided. Discharge Plan Triage Chief Complaint: Abd Pain ED Provider: Roxane Yates Dx/Rx/DC Orders Clinical Impression: Vomiting, Hypokalemia Instructions: ED Hypokalemia, ED Vomiting (Adult) Prescriptions: New prochlorperazine maleate [Compazine] 10 mg tablet 10 mg PO BID PRN (Reason: nausea and vomiting) Qty: 30 0RF potassium chloride 20 mEq tablet extended release 20 meq PO BID Qty: 10 0RF No Action omeprazole 40 mg capsule,delayed release(DR/EC) 40 mg PO DAILY Qty: 60 0RF sucralfate 1 gram tablet 1 g PO Q6H Patient Comments: take 1 tablet before meals and at bedtime pantoprazole 40 mg tablet,delayed release (DR/EC) 40 mg PO DAILY Rx Instructions: take 1 tablet by mouth twice a day for 8 WEEKS then once daily for 8 WEEKS then STOP Primary Care Provider: Jessica Jay Referrals: Jessica Jay MD [Primary Care Provider] - 1 Week Activity Restrictions/Additional Instructions: Please follow-up with your primary care doctor in 1 week for repeat labs to ensure your potassium level is rising. Please follow-up with Dr. Hightower as scheduled. Disposition Disposition: Home, Self Care
--- NOTE | 2023-06-22 10:05 | RAD_ITS ---
INDICATION: pain, vomiting EXAMINATION/TECHNIQUE: X-RAY - XR Abdomen 1 View COMPARISON: No relevant prior comparison study available FINDINGS: BOWEL GAS PATTERN: Nonspecific density on the right side of the abdomen probably in the hepatic flexure. The gas pattern otherwise is nonobstructive. FREE AIR: Not assessed on a single supine view. ORGANOMEGALY: Not seen. CALCIFICATIONS: No abnormal calcifications observed. LOWER CHEST: No acute pathology. BONES AND SOFT TISSUES: No acute pathology. RAD/Abdomen Single View IMPRESSION: Nonspecific gas pattern as described above. Electronically Signed: Kashif Lester MD at 10:53 EDT ,
[2023-06-22 10:30] LABS: Absolute Neutrophil Count 3.4 X10^3/uL (2.0-7.7); Basophil# 0.02 X10^3/uL; Basophil% 0.4 % (0-1); Eosinophil# 0.02 X10^3/uL; Eosinophils% 0.4 % (0-5); Hematocrit 39.8 % (37-47); Lymphocyte % 24.6 % (19-41); Mean Corp Hgb Conc 35.2 g/dL (32-36); Mean Corpuscular Hgb 34.1 pg (27.0-32.0); Mean Corpuscular Volume 97.1 fL (81-99); Mean Platelet Vol. 8.9 fl (6.2-12.0); Monocyte# 0.21 X10^3/uL; Monocyte% 4.3 % (0-10); NRBC Flagged by Analyzer 0 % (0-5); Neutrophil # 3.41 X10^3/uL (2.7-7.7); Neutrophil % 70.1 % (47-70); Platelet Count 195 K/mm3 (150-450); RBC Distribution Width CV 11.9 % (11.6-14.6); RBC Distribution Width SD 42.6 fl (35.1-43.9); White Blood Count 4.9 K/mm3 (4.4-11.0)
[2023-06-22 10:48] LABS: Internal QC Validated? YES +Cl - CLEAR BKGD; Pregnancy, Serum, hCG Quali. NEGATIVE Negative
[2023-06-22 11:17] LABS: AST(SGOT) 12 U/L (15-37); Alanine Aminotransfer ALT/SGPT 13 U/L (13-56); Albumin, Serum 3.3 g/dL (3.2-5.0); Alkaline Phosphatase 54 U/L (45-117); Anion Gap 7 (5-15); BUN 8 mg/dL (7-18); BUN/Creat Ratio 15.3 RATIO (10-20); Bilirubin, Direct 0.23 mg/dL (0.00-0.30); Chloride 115 mmol/L (98-107); Creatinine, Serum 0.52 mg/dL (0.55-1.02); EST Glomerular Filtration Rate 150 mL/min (>60); Est Glom Filt Rate - Afr Amer 181 mL/min (>60); Estimated Creatinine Clearance 135.62 ml/min; Globulin 3.1 g/dL (2.2-4.2); Glucose 79 mg/dL (74-106); Lipase 13 U/L (13-75); Potassium 2.7 mmol/L (3.5-5.1); Protein, Total 6.4 g/dL (6.4-8.2); Sodium Level 144 mmol/L (136-145)
[2023-06-22] MEDS: Potassium Chloride Oral Tablet 20 MEQ 40 MEQ PO (11:54)
[2023-06-22] MEDS: proCHLORPERazine 5 MG Tablet 10 MG PO (11:55)
[2023-06-22 12:00] VITALS: BP 110/82; PULSE 73; RESP 14; O2SAT 98
[2023-06-22 13:18] VITALS: BP 109/81; PULSE 42; RESP 14; O2SAT 97
== END 2023-06-22 13:18 | disposition home or self-care (01) ==
PROVIDERS: Emergency Provider Emergency Medicine; PCP Internal Medicine; Visit Provider Emergency Medicine
DX: R11.2 Nausea with vomiting, unspecified (principal); E87.6 Hypokalemia; R10.10 Upper abdominal pain, unspecified; G89.29 Other chronic pain; K21.9 Gastro-esophageal reflux disease without esophagitis; Z79.899 Other long term (current) drug therapy; Z87.891 Personal history of nicotine dependence
CPT/HCPCS: 74018; 80048; 80076; 83690; 84703; 85025; 99283

== ENCOUNTER 2024-09-02 13:41 | Emergency (ER) | payer SELFPAY ==
[2024-09-02 13:42] VITALS: BP 123/94; PULSE 97; RESP 15; TEMP 37; O2SAT 99; BMI 22.0
--- NOTE | 2024-09-02 14:31 | CT_ITS ---
STUDY: CT ABDOMEN AND PELVIS WITH CONTRAST REASON FOR EXAM: Female, 29 years old. diffuse abd pain RADIATION DOSAGE (If Supplied By Facility): CTDIvol = ( 7.95 ) mGy, DLP = ( 293.02 ) mGycm TECHNIQUE: Transaxial images were obtained from the dome of the diaphragm to the symphysis pubis without oral contrast. IV 100mL Isovue-300 was administered. Sagittal and coronal images were reconstructed. Individualized dose optimization techniques were used for this CT. COMPARISON: None. FINDINGS: The visualized lung bases are unremarkable. The visualized portions of the heart are within normal limits. Normal liver. Normal gallbladder and extrahepatic biliary system. Normal spleen. Normal pancreas. Normal bilateral adrenal glands. Normal right kidney. Normal left kidney. Normal visualized stomach. Normal small intestine. Normal colon. The appendix is visualized and appears normal. Normal abdominal aorta. Normal inferior vena cava. Normal retroperitoneum. Normal urinary bladder. Up to 1.2 cm cystic nodules in the ovaries. Normal abdominal wall. Normal osseous structures. CT/Abdomen/Pelvis W IV Cont ONLY IMPRESSION: Up to 1.2 cm cystic nodules in the ovaries. Electronically Signed: Kristian Del Toro DO at 18:08 EST Reading Location ID and State: [facility] / [place] Tel [phone], Service support ,
--- NOTE | 2024-09-02 14:40 | EDS_ITS ---
HPI History of Present Illness Chief Complaint: Nausea/Vomiting/Diarrhea Narrative Narrative: Patient is a 21-year-old female with past medical history of depression, alcohol use, marijuana use, aplastic anemia who presented to the emergency department with a chief complaint of abdominal pain nausea vomiting diarrhea. Patient states that last night she started to feel ill and then today she has been vomiting multiple times I keep anything down. 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 Patient states that she did not have anything at home for nausea take and given her symptoms not improving then she came here further evaluation management. [facility] Medical History GERD (gastroesophageal reflux disease) Wears glasses Depression Alcohol use Marijuana use Easy bruising History of peptic ulcer Gastric reflux Non-smoker History of epidural anesthesia Nausea and vomiting Hepatomegaly History of miscarriage Vitamin B12 deficiency Anxiety Home Medications ?Medication ?Instructions ?Recorded ?Last Taken ?Type omeprazole 40 mg capsule,delayed 40 mg PO DAILY #60 caps 03/27/23 Unknown Rx release pantoprazole 40 mg tablet,delayed 40 mg PO DAILY 06/22/23 Unknown History release potassium chloride 20 mEq 20 meq PO BID #10 tabs 06/22/23 Unknown Rx tablet,extended release prochlorperazine maleate 10 mg 10 mg PO BID PRN nausea and 06/22/23 Unknown Rx tablet (Compazine) vomiting #30 tabs sucralfate 1 gram tablet 1 g PO Q6H 06/22/23 Unknown History dicyclomine 20 mg tablet 20 mg PO TID #21 tabs 09/02/24 Unknown Rx ondansetron 4 mg disintegrating 4 mg PO Q6H PRN nausea and 09/02/24 Unknown Rx tablet vomiting #20 tabs Allergy/AdvReac Type Severity Reaction Status Date / Time No Known Allergies Allergy Verified 09/02/24 13:42 Family History Grandmother Breast cancer Grandfather Hypertension Mother Thyroid disorder Other Cancer Surgical History History of bone marrow biopsy Social History household members: significant other and children Smoking Status: Former smoker substance use type: does not use ROS ROS ED ROS Narrative Constitutional: Denies any fevers, chills, headaches, lightness, dizziness Cardiovascular: Denies chest pain or palpitations Respiratory: Denies coughing wheezing shortness of breath Abdomen: Complains of abdominal pain nausea vomiting diarrhea as noted above : Denies any urinary symptoms Neurological: Denies any numbness, weakness, tingling Musculoskeletal: Denies back pain Skin: Denies rashes or lesions EXAM Physical Exam Narrative Exam Narrative: General: Patient lying in bed rest comfortably did not appear to be acute distress Head: Atraumatic, normocephalic Eyes: PERRL bilateral, EOMI bladder, no conjunctival injection noted Neck: Soft, supple, trachea midline Cardiovascular: Regular in rhythm no murmurs gallops rubs noted Respiratory: Clear to auscultation bilaterally no rales rhonchi or wheezes noted Abdomen: Soft, nondistended, diffuse tenderness to palpation no rebound or guarding on exam Extremities: +5/5 strength noted in the bilateral upper and lower extremities, radial pulses +2/4 in the bilateral extremities, no pedal edema no exam Neurological: Patient following commands knew that she was at [facility] year is 2024 Skin: Warm, dry, intact no rashes or lesions noted Const Vital Signs: 09/02/24 13:42 09/02/24 15:42 09/02/24 17:00 Temperature 98.6 F Temperature Source Oral Pulse Rate 97 87 82 Respiratory Rate 15 19 H 19 H Blood Pressure 123/94 H 122/77 H 105/53 L Blood Pressure Mean 103 92 70 Pulse Ox 99 99 97 Oxygen Delivery Method Room Air Room Air Room Air 09/02/24 19:00 Temperature Temperature Source Pulse Rate 99 Respiratory Rate 16 Blood Pressure 116/58 L Blood Pressure Mean 77 Pulse Ox 81 Oxygen Delivery Method Room Air MDM MDM MDM Narrative Medical decision making narrative: Patient is a 21-year-old female who presented to the emergency department with a chief complaint of abdominal pain nausea vomit diarrhea. On the differential diagnose includes but not limited to influenza, COVID, viral gastroenteritis secondary to other viral etiology, , cholecystitis, pancreatitis. Once workup is obtained reviewed she will be reevaluated. Patient be given IV f luids, Zofran and morphine. Patient CBC reviewed and showed no evidence leukocytosis white blood count normal at 5.6, hemoglobin stable 15.2, platelet count normal at 232. Patient sodium normal 135, potassium normal 4.3, creatinine normal at 0.96. Patient's AST and ALT were 45 and 42 respectively. Patient's urinalysis showed 150 ketones negative nitrates 25 leukocyte esterase, 5-10 white cells 2+ bacteria but she does not have any urinary symptoms this will be sent for culture. Patient's test was negative. Patient's CT abdomen/pelvis with IV contrast showed up to 1.2 cm cystic nodules in the ovaries. Patient tested positive for COVID here in the emergency department. On reevaluation the patient she is feeling better at 1930 and would like to go home at this point time. Patient tolerated oral challenge here. She will be given prescriptions for Bentyl, Zofran and was advised to continue supportive care. She is requesting a work note which she was provided. All question concerns answered she is discharged home in stable condition with instructions to return with worsening symptoms or other concerns. Lab Data Labs: Laboratory Results - last 24 hr 09/02/24 09/02/24 14:45 15:50 WBC 5.6 RBC 4.38 Hgb 15.2 H Hct 44.7 MCV 102.1 H MCH 34.7 H MCHC 34.0 RDW Std Deviation 46.3 H RDW Coeff of [place] 12.3 Plt Count 232 MPV 8.5 Immature Gran % (Auto) 0.400 Neut % (Auto) 89.7 H Lymph % (Auto) 6.8 L [place] % (Auto) 2.5 Eos % (Auto) 0.2 Baso % (Auto) 0.4 Absolute Neuts (auto) 5.0 Absolute Lymphs (auto) 0.38 L Nucleated RBC % 0 Sodium 135 L Potassium 4.3 Chloride 106 Carbon Dioxide 24.0 Anion Gap 5 BUN 12 Creatinine 0.96 Estim Creat Clear Calc 72.17 Est GFR (MDRD) Af Amer 89 Est GFR (MDRD) Non-Af 73 BUN/Creatinine Ratio 12.5 Glucose 131 H Calcium 9.8 Total Bilirubin 0.70 AST 45 H ALT 42 Alkaline Phosphatase 84 Total Protein 8.8 H Albumin 4.3 Globulin 4.5 H Albumin/Globulin Ratio 1.0 Lipase 29 Urine Color Yellow Urine Clarity Cloudy Urine pH 6.0 Ur Specific [place] 1.015 Urine Protein 30 H Urine Glucose (UA) Normal Urine Ketones 150 A* Urine Occult Blood 10 H Urine Nitrite Negative Urine Bilirubin Negative Urine Urobilinogen Normal Ur Leukocyte Esterase 25 H Urine RBC 5-10 SEEN Urine WBC 5-10 SEEN Ur Squamous Epith Cells 0-5 SEEN Urine Bacteria 2+ Urine Mucus 3+ Urine Test Negative Radiography Diagnostic Testing: Clinical Impression(s) from Imaging Studies Abdomen/Pelvis CT 09/02/24 14:31 IMPRESSION: Up to 1.2 cm cystic nodules in the ovaries. Electronically Signed: Kristian Del Toro DO at 18:08 EST Reading Location ID and State: [facility] / [place] Tel [phone], Service support , Discharge Plan Triage Chief Complaint: Nausea/Vomiting/Diarrhea ED Provider: Reid Garcia Dx/Rx/DC Orders Clinical Impression: COVID, Nausea & vomiting, Abdominal pain Prescriptions: New dicyclomine 20 mg tablet 20 mg PO TID Qty: 21 0RF ondansetron 4 mg tablet,disintegrating 4 mg PO Q6H PRN (Reason: nausea and vomiting) Qty: 20 0RF No Action omeprazole 40 mg capsule,delayed release(DR/EC) 40 mg PO DAILY Qty: 60 0RF sucralfate 1 gram tablet 1 g PO Q6H Patient Comments: take 1 tablet before meals and at bedtime pantoprazole 40 mg tablet,delayed release (DR/EC) 40 mg PO DAILY Rx Instructions: take 1 tablet by mouth twice a day for 8 WEEKS then once daily for 8 WEEKS then STOP prochlorperazine maleate [Compazine] 10 mg tablet 10 mg PO BID PRN (Reason: nausea and vomiting) Qty: 30 0RF potassium chloride 20 mEq tablet extended release 20 meq PO BID Qty: 10 0RF Stand Alone Forms: ED Work / School Excuse Primary Care Provider: Jessica Jay Referrals: Jessica Jay MD [Primary Care Provider] - Activity Restrictions/Additional Instructions: Follow with your doctor in outpatient setting. Take prescriptions as prescribed encourage you to start with a bland diet and advance as tolerated. He tested positive for COVID here in the emergency department. Your CT scan was normal no acute findings. Print Language: Swiss Disposition Disposition: Home, Self Care
[2024-09-02] MEDS: Metoclopramide 10 MG/2 ML Vial IV (14:42)
[2024-09-02] MEDS: Morphine 4 MG/ML Syringe IV (14:42)
[2024-09-02] MEDS: 0.9% Normal Saline (1000mL) 1,000 ML 999 ML IV (14:42)
[2024-09-02 14:53] LABS: Absolute Lymphocyte Count 0.38 X10^3/uL (0.83-4.51); Basophil# 0.02 X10^3/uL; Basophil% 0.4 % (0-1); Eosinophil# 0.01 X10^3/uL; Eosinophils% 0.2 % (0-5); Hematocrit 44.7 % (37-47); Hemoglobin 15.2 g/dL (12.0-15.0); Lymphocyte # 0.38 X10^3/ul (0.83-4.51); Lymphocyte % 6.8 % (19-41); Mean Corpuscular Hgb 34.7 pg (27.0-32.0); Mean Corpuscular Volume 102.1 fL (81-99); Mean Platelet Vol. 8.5 fl (6.2-12.0); Monocyte# 0.14 X10^3/uL; Monocyte% 2.5 % (0-10); NRBC Flagged by Analyzer 0 % (0-5); Neutrophil # 5.04 X10^3/uL (2.7-7.7); Neutrophil % 89.7 % (47-70); POSITIVE DIFFERENTIAL YES; Platelet Count 232 K/mm3 (150-450); RBC Distribution Width CV 12.3 % (11.6-14.6); RBC Distribution Width SD 46.3 fl (35.1-43.9); Red Blood Count 4.38 M/mm3 (4.2-5.4); White Blood Count 5.6 K/mm3 (4.4-11.0)
[2024-09-02 15:22] LABS: AST(SGOT) 45 U/L (15-37); Alanine Aminotransfer ALT/SGPT 42 U/L (13-56); Albumin, Serum 4.3 g/dL (3.2-5.0); Alkaline Phosphatase 84 U/L (45-117); Anion Gap 5 (5-15); BUN 12 mg/dL (7-18); BUN/Creat Ratio 12.5 RATIO (10-20); Calcium,Total 9.8 mg/dL (8.5-10.1); Chloride 106 mmol/L (98-107); Creatinine, Serum 0.96 mg/dL (0.55-1.02); EST Glomerular Filtration Rate 73 mL/min (>60); Est Glom Filt Rate - Afr Amer 89 mL/min (>60); Estimated Creatinine Clearance 72.17 ml/min; Globulin 4.5 g/dL (2.2-4.2); Glucose 131 mg/dL (74-106); Lipase 29 U/L (13-75); Potassium 4.3 mmol/L (3.5-5.1); Protein, Total 8.8 g/dL (6.4-8.2); Sodium Level 135 mmol/L (136-145)
[2024-09-02 15:42] VITALS: BP 122/77; PULSE 87; RESP 19; O2SAT 99
[2024-09-02 16:04] LABS: Color, Urine Yellow (Yellow); Glucose, Dipstick Normal (Normal); Leukocyte Esterase-Dipstick 25 /ul (Negative); Nitrite-Dipstick Negative (Negative); Occult Blood-Urine 10 /ul (Negative); Protein-Dipstick 30 mg/dl (Negative); Specific Gravity, Urine 1.015 (1.002-1.030); Urine Bilirubin Dipstick Negative (Negative); Urine Clarity Cloudy (Clear); Urine Urobilinogen Normal (Normal)
[2024-09-02 16:16] LABS: Internal QC Validated? YES +Cl - CLEAR BKGD
[2024-09-02 16:17] LABS: Ketone-Dipstick 150 mg/dl (Negative); Pregnancy, Urine Negative Negative
[2024-09-02 16:33] LABS: Squamous Epithelial Cells - UA 0-5 SEEN /hpf (5-10)
[2024-09-02 16:34] LABS: Bacteria 2+ /hpf (None Seen)
[2024-09-02 16:35] LABS: Red Blood Cells-Urine 5-10 SEEN /hpf (0-5); White Blood Cells 5-10 SEEN /hpf (0-5)
[2024-09-02 16:36] LABS: Mucous, Urine 3+ /hpf (<or=2+)
[2024-09-02 17:00] VITALS: BP 105/53; PULSE 82; RESP 19; O2SAT 97
[2024-09-02] MEDS: Ondansetron 4 MG/2 ML Vial IV (17:16)
[2024-09-02] MEDS: Dextrose 5%/0.9% NaCl 1,000 ML 250 ML IV (17:38)
[2024-09-02 19:00] VITALS: BP 116/58; PULSE 99; RESP 16; O2SAT 81
[2024-09-02 19:32] VITALS: BP 108/55; PULSE 72; RESP 16; TEMP 36.6; O2SAT 100
== END 2024-09-02 19:37 | disposition home or self-care (01) ==
PROVIDERS: Emergency Provider Emergency Medicine; PCP Internal Medicine; Visit Provider Emergency Medicine
DX: U07.1 COVID-19 (principal); R10.9 Unspecified abdominal pain; R11.2 Nausea with vomiting, unspecified; K21.9 Gastro-esophageal reflux disease without esophagitis; F32.A Depression, unspecified; Z79.899 Other long term (current) drug therapy; Z87.891 Personal history of nicotine dependence
CPT/HCPCS: 74177; 80053; 81001; 81025; 83690; 85025; 87086; 87088; 87631; 96361; 96374; 96375; 99284; Q9967; A4216; J2405